=== PATIENT | male | born 1965 | race Caucasian/White ===

== ENCOUNTER 2016-08-13 11:02 | Emergency (ER) | payer BC ==
[~2016-08-13] VITALS: Ht 160 cm; Wt 131.5 kg
[~2016-08-13 11:02] MED LIST: ALBUTEROL0.09 MG/A2 IH; AMOXICILLIN500 MG PO; AMOXICILLIN875 MG PO; AUGMENTIN 500 M1 TAB PO; BACTRIM DS 8001 TA1 PO; CAPOTEN50 MG PO; CIPRO500 MG PO; CLARITIN10 MG PO; CLEOCIN HCL300 MG PO; DARVOCET N 1001 TAB PO; DOXYCYCLINE MO100 MG PO; KEFLEX500 MG PO; MEDROL DOSEPAK4 MG PO; NORVASC10 MG PO; PHENERGAN W/DM120 ML PO; PREDNICOT10 MG PO; PREDNICOT20 MG PO; PREDNISONE20 MG PO; PROAIR HFA0.09 MG/AC INH; ROBITUSSIN CF PO; ROBITUSSIN DM120 ML PO; SYNTHROID,LEV125 MCG PO; SYNTHROID0.125 MG PO; TESSALON PERLE100 M1 PO; Tessalon Perle100 MG PO; VIBRAMYCIN100 MG PO; VICODIN 5/500 505 MG PO; VICODIN ES 7501 TAB PO; ZITHROMAX Z PA250 MG PO; ZITHROMAX250 MG PO; ZOFRAN4 MG PO
[2016-08-13 11:07] VITALS: BP 153/82
[2016-08-13] MEDS ORDERED: CLARITIN10 MG PO (11:45)
[2016-08-13] MEDS ORDERED: ROBITUSSIN AC 110 ML PO (11:45)
[2016-08-13] MEDS ORDERED: FLONASE ALLERG9.9 ML NAS (11:45)
[2016-08-13] MEDS ORDERED: PREDNISONE10 MG PO (11:45)
[2016-10-14] MEDS ORDERED: PREDNISONE20 M1 PO (07:27)
[2016-10-14] MEDS ORDERED: ZITHROMAX250 MG PO (07:27)
[2016-10-14] MEDS ORDERED: VENTOLIN H0.09 MG/AC INH (07:28)
== END 2016-08-13 12:31 | disposition home or self-care (01) ==
LOC: ED 11:02
DX: B34.9 Viral infection, unspecified (principal); I10 Essential (primary) hypertension; K21.9 Gastro-esophageal reflux disease without esophagitis; E78.5 Hyperlipidemia, unspecified; E03.9 Hypothyroidism, unspecified; D64.9 Anemia, unspecified; J45.909 Unspecified asthma, uncomplicated; Z79.899 Other long term (current) drug therapy; Z88.6 Allergy status to analgesic agent

== ENCOUNTER → 2017-02-26 | Emergency (ER) | payer BC ==
[~2017-02-26] VITALS: Ht 157.4 cm; Wt 131.5 kg
[~2017-02-26] MED LIST changes: +FLONASE ALLERG9.9 ML NAS; +PREDNISONE10 MG PO; +PREDNISONE20 M1 PO; +ROBITUSSIN AC 110 ML PO; +ROBITUSSIN DM 105 ML PO; +VENTOLIN H0.09 MG/AC INH
[2017-02-26 11:00] VITALS: BP 146/80
== END ==
LOC: ED 10:53
DX: B34.9 Viral infection, unspecified (principal); R03.0 Elevated blood-pressure reading, without diagnosis of hypertension; Z88.6 Allergy status to analgesic agent

== ENCOUNTER 2017-03-30 01:00 | Emergency (ER) | payer BC ==
[~2017-03-30] VITALS: Ht 157.4 cm; Wt 134.3 kg
[~2017-03-30 01:00] MED LIST changes: -LEVOTHYROXINE137 MCG PO; -NORCO 5-325 TA1 EACH PO; -PEPCID20 MG PO; -REGLAN5 MG PO; -VITAMIN D31000 UNI1 PO
[2017-03-30] MEDS ORDERED: VITAMIN D31000 UNI1 PO (01:09)
[2017-03-30] MEDS ORDERED: LEVOTHYROXINE137 MCG PO (01:10)
[2017-03-30 01:33] LABS: BASO % 0.2 % (0.0-1.0); EOS # 0.3 10*3/uL (0.0-0.4); EOS % 2.9 % (1.0-4.0); HEMATOCRIT 42.2 % (42.0-52.0); HEMOGLOBIN 12.9 g/dl (14.0-18.0); LYMPH # 1.8 10*3/uL (1.3-4.4); LYMPH % 18.6 % (27.0-41.0); MEAN CELL VOLUME 84.4 fl (80.0-94.0); MEAN CORPUSCULAR HGB 25.8 pg (27.0-31.0); MEAN CORPUSCULAR HGB CONC 30.6 g/dl (33.0-37.0); MEAN PLATELET VOLUME 9.1 fl (9.6-12.3); MONO # 0.6 10*3/uL (0.1-1.0); PLATELET COUNT AUTOMATED 369 10*3/uL (130-400); RED CELL DISTRI WIDTH 14.1 % (0-14.5); WHITE BLOOD COUNT 9.7 10*3/uL (4.8-10.8)
[2017-03-30 01:50] LABS: ALBUMIN 3.4 gm/dl (3.1-4.5); ALKALINE PHOSPHATASE 113 U/L (45-117); BUN 14 mg/dl (7-24); CHLORIDE 102 mmol/L (98-107); CREATININE 1.13 mg/dL (0.70-1.30); LIPASE 145 U/L (73-393); MAGNESIUM 2.2 mg/dL (1.5-2.1); POTASSIUM 3.7 mmol/L (3.5-5.1); SGOT/AST 26 IU/L (3-35); SGPT/ALT 45 U/L (12-78); SODIUM 137 mmol/L (136-145); TOTAL PROTEIN 7.9 gm/dL (6.4-8.2)
[2017-03-30 01:51] LABS: TROPONIN I < 0.015 ng/ml (<0.045)
[2017-03-30 02:16] VITALS: BP 156/84
[2017-03-30 04:09] LABS: BILIRUBIN NEGATIVE (NEGATIVE); BLOOD TRACE-INTACT (NEGATIVE); CLARITY CLEAR (CLEAR); COLOR YELLOW (YELLOW); GLUCOSE NEGATIVE (NEGATIVE); KETONE NEGATIVE (NEGATIVE); LEUKO ESTERASE NEGATIVE (NEGATIVE); NITRITE NEGATIVE (NEGATIVE); SPECIFIC GRAVITY 1.025 (1.005-1.030); UROBILINOGEN 0.2 E.U./dl (0.2-1.0)
[2017-03-30 04:19] LABS: WBC 0-2 wbc/hpf (0-5)
[2017-03-30] MEDS ORDERED: REGLAN5 MG PO (04:44)
[2017-03-30] MEDS ORDERED: NORCO 5-325 TA1 EACH PO (04:44)
[2017-03-30] MEDS ORDERED: PEPCID20 MG PO (04:44)
== END 2017-03-30 05:10 | disposition home or self-care (01) ==
LOC: ED 01:00
PROVIDERS: Emergency Medicine Emergency Medical Services
DX: K80.50 Calculus of bile duct without cholangitis or cholecystitis without obstruction (principal); K29.70 Gastritis, unspecified, without bleeding; J45.909 Unspecified asthma, uncomplicated; E78.5 Hyperlipidemia, unspecified; I10 Essential (primary) hypertension; K21.9 Gastro-esophageal reflux disease without esophagitis; E03.9 Hypothyroidism, unspecified; Z79.899 Other long term (current) drug therapy; Z98.890 Other specified postprocedural states; Z88.6 Allergy status to analgesic agent; Z88.5 Allergy status to narcotic agent

== ENCOUNTER → 2017-03-30 | Outpatient (CLI) | payer BC ==
[~2017-03-30] MED LIST changes: -CAPOTEN50 MG PO; +CAPTOPRIL25 MG PO; +LEVOTHYROXINE137 MCG PO; +NORCO 5-325 TA1 EACH PO; +PEPCID20 MG PO; +REGLAN5 MG PO; +VITAMIN D31000 UNI1 PO
== END | disposition home or self-care (01) ==
LOC: US 09:57
DX: K80.20 Calculus of gallbladder without cholecystitis without obstruction (principal)

== ENCOUNTER 2017-04-04 18:47 | Emergency (ER) | payer BC ==
[~2017-04-04] VITALS: Ht 157.4 cm; Wt 135.2 kg
[~2017-04-04 18:47] MED LIST changes: +LEVOTHYROXINE137 MCG PO; +NORCO 5-325 TA1 EACH PO; +PEPCID20 MG PO; +REGLAN5 MG PO; +VITAMIN D31000 UNI1 PO
[2017-04-04 19:55] LABS: BASO % 0.1 % (0.0-1.0); EOS % 0.3 % (1.0-4.0); HEMATOCRIT 40.2 % (42.0-52.0); HEMOGLOBIN 12.4 g/dl (14.0-18.0); LYMPH # 0.9 10*3/uL (1.3-4.4); LYMPH % 6.4 % (27.0-41.0); MEAN CELL VOLUME 82.7 fl (80.0-94.0); MEAN CORPUSCULAR HGB 25.5 pg (27.0-31.0); MEAN CORPUSCULAR HGB CONC 30.8 g/dl (33.0-37.0); MONO # 0.4 10*3/uL (0.1-1.0); MONO % 2.8 % (3.0-9.0); NEUT # 13.1 10*3/uL (2.3-7.9); NEUT % 89.9 % (47.0-73.0); PLATELET COUNT AUTOMATED 366 10*3/uL (130-400); RED BLOOD COUNT 4.86 10*6/uL (4.50-5.90); RED CELL DISTRI WIDTH 13.8 % (0-14.5); WHITE BLOOD COUNT 14.6 10*3/uL (4.8-10.8)
[2017-04-04 20:10] LABS: ALBUMIN 3.3 gm/dl (3.1-4.5); ALKALINE PHOSPHATASE 129 U/L (45-117); BUN 8 mg/dl (7-24); CHLORIDE 100 mmol/L (98-107); CREATININE 0.86 mg/dL (0.70-1.30); LIPASE 81 U/L (73-393); POTASSIUM 3.8 mmol/L (3.5-5.1); SGOT/AST 29 IU/L (3-35); SGPT/ALT 40 U/L (12-78); SODIUM 138 mmol/L (136-145); TOTAL PROTEIN 7.9 gm/dL (6.4-8.2)
[2017-04-04 20:49] VITALS: BP 198/96
[2017-04-04 21:07] LABS: BILIRUBIN NEGATIVE (NEGATIVE); BLOOD TRACE-INTACT (NEGATIVE); CLARITY CLEAR (CLEAR); COLOR YELLOW (YELLOW); GLUCOSE NEGATIVE (NEGATIVE); KETONE NEGATIVE (NEGATIVE); LEUKO ESTERASE NEGATIVE (NEGATIVE); NITRITE NEGATIVE (NEGATIVE); PH 7.5 (5.0-9.0); SPECIFIC GRAVITY 1.015 (1.005-1.030); UROBILINOGEN 0.2 E.U./dl (0.2-1.0)
[2017-04-04 21:13] LABS: BACTERIA TRACE; WBC 0-2 wbc/hpf (0-5)
== END 2017-04-04 21:25 | disposition home or self-care (01) ==
LOC: ED 18:47
PROVIDERS: Nurse Practitioner Family
DX: R10.11 Right upper quadrant pain (principal); R11.2 Nausea with vomiting, unspecified; I10 Essential (primary) hypertension; J45.909 Unspecified asthma, uncomplicated; K21.9 Gastro-esophageal reflux disease without esophagitis; E78.5 Hyperlipidemia, unspecified; E03.9 Hypothyroidism, unspecified; Z88.6 Allergy status to analgesic agent; Z79.899 Other long term (current) drug therapy

== ENCOUNTER → 2017-04-18 | Day surgery (SDC) | payer BC ==
[~2017-04-18] VITALS: Ht 157.4 cm; Wt 131.5 kg
--- NOTE | ~2017-04-18 | PROC NOTE ---
[place], [place] PROCEDURE NOTE NAME: NANCY TREVINO UNIT #: [id number] ROOM: DOCTOR: CHITO MAI MD BIRTHDATE: [birth year] DOS: 04/18/2017 PREOPERATIVE DIAGNOSES: Lower gastrointestinal bleeding, constipation. POSTOPERATIVE DIAGNOSIS: Colon polyps x 2 (45 cm, 90 cm from the anal verge). PROCEDURE: Colonoscopy with polypectomy. SURGEON: Chito Mai MD SUPERINTENDENT NONSELLING: None. ANESTHESIA: MAC. INDICATIONS: This is a 52-year-old gentleman who is here for a colonoscopy for his symptoms of constipation and lower GI bleeding. The patient has never had a colonoscopy before. The procedure and its complications were explained to the patient in detail preoperatively. Complications that were discussed included but were not limited to bleeding, infection, colon perforation, missed lesions, and prolonged pain. He agreed to proceed. DESCRIPTION OF PROCEDURE: After identifying the patient, the patient was brought to the endoscopy suite and placed in the left lateral position. After IV sedation was administered, a timeout procedure was called. A digital rectal exam was performed, which was within normal limits. An adult colonoscope was now introduced into the anal canal and advanced sequentially into the rectum, sigmoid colon, descending colon, transverse colon and ascending colon up to the cecum. The prep was found to be optimal. Upon reaching the cecum, the scope was withdrawn. At approximately 90 cm from the anal verge, a polyp was visualized, which was biopsied with the help of biopsy forceps. After hemostasis was confirmed, the scope was withdrawn further where another larger polyp was found at 45 cm. This was removed in 2 pieces with the help of a snare polypectomy and sent for histopathological diagnosis. This region was also tattooed with Breonna Ink and after hemostasis was confirmed, the scope was then withdrawn and the patient was then taken to the recovery room in a stable fashion. There were no complications. Dr. Chito Mai, the attending surgeon, was present throughout the operating case. Based on these findings, the patient is recommended to have another colonoscopy in 3 years or sooner depending on the pathology and depending on this patient's symptoms. This will be discussed with the patient in the postoperative recovery room. [place], [place] PROCEDURE NOTE NAME: NANCY TREVINO UNIT #: [id number] ROOM: DOCTOR: CHITO MAI MD BIRTHDATE: [birth year] Chito Mai MD CM:PROCNOTE:PROCEDURE NOTE 1145 1210 CHITO MAI MD
[2017-04-18 10:00] VITALS: BP 129/72
[2017-04-18 11:30] VITALS: BP 149/94
[2017-04-18 11:45] VITALS: BP 159/90
[2017-04-18 12:00] VITALS: BP 136/88
== END | disposition home or self-care (01) ==
LOC: SDC 04-14 14:00
DX: D12.5 Benign neoplasm of sigmoid colon (principal); D12.3 Benign neoplasm of transverse colon; E03.9 Hypothyroidism, unspecified; I10 Essential (primary) hypertension; E78.00 Pure hypercholesterolemia, unspecified; M10.9 Gout, unspecified; J45.909 Unspecified asthma, uncomplicated; Z79.899 Other long term (current) drug therapy; Z98.890 Other specified postprocedural states; Z88.8 Allergy status to other drugs, medicaments and biological substances

== ENCOUNTER 2017-04-29 14:34 | Emergency (ER) | payer BC ==
[~2017-04-29] VITALS: Ht 157.4 cm; Wt 131.5 kg
[2017-04-29 14:40] VITALS: BP 190/85
[2017-04-29] MEDS ORDERED: AMINOPHYLLIN200 MG PO (16:52)
== END 2017-04-29 22:05 | disposition home or self-care (01) ==
LOC: ED 14:34
DX: J01.10 Acute frontal sinusitis, unspecified (principal); I10 Essential (primary) hypertension; J45.909 Unspecified asthma, uncomplicated; K21.9 Gastro-esophageal reflux disease without esophagitis; E78.5 Hyperlipidemia, unspecified; E03.9 Hypothyroidism, unspecified; Z88.6 Allergy status to analgesic agent; Z79.899 Other long term (current) drug therapy

== ENCOUNTER 2017-09-13 12:27 | Emergency (ER) | payer BC ==
[~2017-09-13] VITALS: Ht 157.4 cm; Wt 133.8 kg
[~2017-09-13 12:27] MED LIST changes: +AMINOPHYLLIN200 MG PO
[2017-09-13 13:02] VITALS: BP 152/83
[2017-09-13 14:22] LABS: BILIRUBIN NEGATIVE (NEGATIVE); BLOOD NEGATIVE (NEGATIVE); CLARITY CLEAR (CLEAR); COLOR YELLOW (YELLOW); GLUCOSE NEGATIVE (NEGATIVE); KETONE NEGATIVE (NEGATIVE); LEUKO ESTERASE NEGATIVE (NEGATIVE); NITRITE NEGATIVE (NEGATIVE); SPECIFIC GRAVITY <= 1.005 (1.005-1.030); UROBILINOGEN 0.2 E.U./dl (0.2-1.0)
[2017-09-13 14:45] LABS: EPITHELIAL CELLS 0-2; WBC 0-2 wbc/hpf (0-5)
== END 2017-09-13 15:15 | disposition home or self-care (01) ==
LOC: ED 12:27
PROVIDERS: Nurse Practitioner Family
DX: Z11.3 Encounter for screening for infections with a predominantly sexual mode of transmission (principal); Z98.890 Other specified postprocedural states; Z79.899 Other long term (current) drug therapy; Z88.6 Allergy status to analgesic agent; Z88.5 Allergy status to narcotic agent

== ENCOUNTER → 2017-11-15 | Outpatient (CLI) | payer BC | END | disposition home or self-care (01) | LOC: US 08:00 | DX: L03.116 Cellulitis of left lower limb (principal); R60.0 Localized edema ==

== ENCOUNTER 2017-12-27 15:21 | Inpatient (IN) | payer BC ==
[~2017-12-27] VITALS: Ht 154.9 cm; Wt 134.9 kg
--- NOTE | ~2017-12-27 | CON ---
[place], [place] REPORT OF CONSULTATION NAME: NANCY TREVINO UNIT #: [id number] ROOM: 424 DOCTOR: JENNIFER FIGUEREDOHAFSA BIRTHDATE: [birth year] DOS: 12/30/2017 HISTORY OF PRESENT ILLNESS: This is a 52-year-old who has presented with initial complaint of right upper quadrant pain, nausea and vomiting about 3 days prior to admission and the patient seen by Dr. Ortiz and radiologic diagnosis of cholecystitis initially for laparoscopic cholecystectomy and subsequently converted to open cholecystectomy with drain placement and concerns were possibility of perforated gallbladder. Subsequently, perforation of the gallbladder and cholecystitis and abscess formation and gangrenous gallbladder were all noticed, subtotal cholecystectomy and drainage was undertaken and I was called by Dr. Ortiz regarding need of stent in common duct hopefully to above cystic duct to prevent further drainage. At the time of admission, his white blood cell was 17, H and H of 11 and 38 with a neutrophil elevation. Comprehensive metabolic panel at the beginning LFTs were normal. Lipase normal. Gallbladder sonogram as part of investigation, cholelithiasis with gallbladder wall thickening and diffuse hepatic steatosis all has been noticed. Troponin level has been fairly obtained and has been negative. Lactic acid was negative. His urine culture and blood cultures remained normal. Labs and records reviewed. PAST MEDICAL HISTORY: Morbid obesity, hypothyroidism, gastroesophageal reflux, asthma, gangrenous gallbladder, status post partial cholecystectomy. PAST SURGICAL HISTORY: Umbilical hernia, history of previous ERCPs, hernia repair. SOCIAL HISTORY: Nonsmoker, nonalcohol consumer. FAMILY HISTORY: Noncontributory. ALLERGIES: CODEINE, ASPIRIN, AND IBUPROFEN. HOME MEDICATIONS: Include Captopril, albuterol, levothyroxine supplementation and vitamin D. REVIEW OF SYSTEMS: HEENT: Denies double vision, blurred vision. RESPIRATORY: Denies shortness of breath. CARDIOVASCULAR: Denies acute chest pain. DIGESTIVE SYSTEM: Post-cholecystectomy yesterday. An abdominal tenderness. PHYSICAL EXAMINATION: GENERAL: Reveals morbidly obese patient. HEENT: Head is normocephalic, nontraumatic. Mouth and buccal mucosa benign. NECK: Supple, no thyromegaly, no cervical lymphadenopathy. CHEST: Symmetric anatomy, equal expansion. No wheeze. No rhonchus. ABDOMEN: Status post drainage in right upper quadrant is noticed. Bowel sounds present. Some erythema of the apron of the abdomen and edema was noticed. EXTREMITIES: No cyanosis, no pedal edema. NEUROLOGIC: Alert and oriented. [place], [place] REPORT OF CONSULTATION NAME: NANCY TREVINO UNIT #: [id number] ROOM: [facility] DOCTOR: HAFSA RODRIGUEZ MD BIRTHDATE: [birth year] Labs reviewed, records reviewed, data reassessed. IMPRESSION: Status post subtotal cholecystectomy. HIDA scan report, sonographic report, labs and records have been reviewed. Gangrenous gallbladder postoperative diagnosis with suspected continuation of drainage. We are going to see if we can negotiate the stent above cystic duct to prevent further leakage through the cystic anatomy since the cystic duct has not been removed. Labs and reports reassessed. We are going to proceed with the ERCP and possible stent placement. HAFSA RODRIGUEZ MD CM:CONSTR:REPORT OF CONSULTATION 1319 01/31/18 0742 interface
--- NOTE | ~2017-12-27 | O ---
[place], [place] OPERATIVE NOTE NAME: NANCY TREVINO UNIT #: [id number] ROOM: 424 DOCTOR: JENNIFER [facility]EDO,[facility] BIRTHDATE: [birth year] DOS: 12/30/2017 GASTROSCOPIC PROCEDURE REPORT The patient has presented with nausea, abdominal pain, leukocytosis and has had previous surgical approach yesterday with subtotal cholecystectomy, laparoscopically converted to open abdomen and the gallbladder apparently was gangrened and difficult to be totally extracted. There was suspected stress regarding possible leaking. PROCEDURE: Today's procedure part of investigation is ERCP plus removal of common duct, obstructed stent plus papillotomy plus balloon sweep of multiple stones from common duct and sludge plus common bile duct stent replacement. PREMEDICATION: Propofol intubation. SCOPE: Olympus viewing duodenum scope. REPORT: After putting the patient in left lateral position and application of lubricant to the scope, the scope was entered. Thereafter, under direct visualization, I advanced through the length of esophagus without difficulty into gastric pouch into the duodenum. So far, multiple small ulcerations in the stomach was identified. As we approached the ampulla of Vater, there is a retained stent, which is completely occluded and this was snared and orally extracted. The patient was rescoped again. Papilla of Vater was cannulated. Hepatic radicles injected. There are multiple floating debris in the common duct. Therefore, a papillotomy at 1 o'clock position was performed and a balloon size 15 was utilized and multi sweep of common duct was performed. Multi large and small stones were extracted, photographed. Large volume of debris was extracted, photographed, and at this stage, a stent size 10 x 7 was over the guidewire negotiated into the common bile duct and deployed successfully immediate emptying of the duct from dye was documented. The patient extubated, tolerated procedure well. IMPRESSION: Endoscopic retrograde cholangiopancreatography, status post removal of obstructed common bile duct stent, status post papillotomy, status post common bile duct balloon multiple stone extractions, status post common bile duct stenting size 10 x 7, no gross leakage at the subtotal cholecystectomy site was noticed. PLAN AND DISCUSSION: We will proceed with a postop management and at this stage, we have a patent hepatic radicles, common hepatic duct and common bile duct with this new stent. [place], [place] OPERATIVE NOTE NAME: NANCY TREVINO UNIT #: [id number] ROOM: 424 DOCTOR: JENNIFER FIGUEREDO,HAFSA BIRTHDATE: [birth year] HAFSA RODRIGUEZ MD CM:OPRECORD:OPERATIVE NOTE [id number] 1526 HAFSA RODRIGUEZ MD 01/03/18 0955 interface
[2017-12-27 15:25] VITALS: BP 134/76
[2017-12-27 15:51] LABS: BASO % 0.1 % (0.0-1.0); EOS # 0.1 10*3/uL (0.0-0.4); EOS % 0.3 % (1.0-4.0); HEMATOCRIT 38.3 % (42.0-52.0); HEMOGLOBIN 11.6 g/dl (14.0-18.0); LYMPH % 5.7 % (27.0-41.0); MEAN CELL VOLUME 84.2 fl (80.0-94.0); MEAN CORPUSCULAR HGB 25.5 pg (27.0-31.0); MEAN CORPUSCULAR HGB CONC 30.3 g/dl (33.0-37.0); MEAN PLATELET VOLUME 9.4 fl (9.6-12.3); MONO # 1.2 10*3/uL (0.1-1.0); MONO % 6.9 % (3.0-9.0); NEUT # 15.1 10*3/uL (2.3-7.9); NEUT % 86.6 % (47.0-73.0); PLATELET COUNT AUTOMATED 360 10*3/uL (130-400); RED BLOOD COUNT 4.55 10*6/uL (4.50-5.90); RED CELL DISTRI WIDTH 14.2 % (0-14.5); WHITE BLOOD COUNT 17.4 10*3/uL (4.8-10.8)
[2017-12-27 16:00] VITALS: BP 120/67
[2017-12-27 16:07] LABS: ALKALINE PHOSPHATASE 117 U/L (45-117); BUN 13 mg/dl (7-24); CHLORIDE 97 mmol/L (98-107); CREATININE 1.02 mg/dL (0.70-1.30); LIPASE 104 U/L (73-393); POTASSIUM 3.5 mmol/L (3.5-5.1); SGOT/AST 26 IU/L (3-35); SGPT/ALT 28 U/L (12-78); SODIUM 137 mmol/L (136-145); TOTAL PROTEIN 8.1 gm/dL (6.4-8.2)
[2017-12-27 16:11] LABS: BILIRUBIN 1+ (NEGATIVE); BLOOD TRACE-LYSED (NEGATIVE); CLARITY SL CLOUDY (CLEAR); COLOR YELLOW (YELLOW); GLUCOSE NEGATIVE (NEGATIVE); KETONE NEGATIVE (NEGATIVE); LEUKO ESTERASE NEGATIVE (NEGATIVE); NITRITE NEGATIVE (NEGATIVE); PH 5.5 (5.0-9.0); SPECIFIC GRAVITY >= 1.030 (1.005-1.030)
[2017-12-27 16:23] LABS: BACTERIA 2+; EPITHELIAL CELLS 0-2
[2017-12-27 17:10] VITALS: BP 120/67
[2017-12-27 19:03] VITALS: BP 99/68
[2017-12-27 19:54] VITALS: BP 134/82
[2017-12-27 19:55] VITALS: BP 134/82
[2017-12-28] VITALS: BP 100/61
[2017-12-28 06:48] LABS: BASO % 0.1 % (0.0-1.0); EOS # 0.1 10*3/uL (0.0-0.4); EOS % 0.6 % (1.0-4.0); HEMATOCRIT 36.9 % (42.0-52.0); HEMOGLOBIN 10.8 g/dl (14.0-18.0); LYMPH # 0.9 10*3/uL (1.3-4.4); LYMPH % 6.2 % (27.0-41.0); MEAN CELL VOLUME 85.8 fl (80.0-94.0); MEAN CORPUSCULAR HGB 25.1 pg (27.0-31.0); MEAN CORPUSCULAR HGB CONC 29.3 g/dl (33.0-37.0); MEAN PLATELET VOLUME 9.3 fl (9.6-12.3); MONO # 1.1 10*3/uL (0.1-1.0); MONO % 7.7 % (3.0-9.0); NEUT # 12.5 10*3/uL (2.3-7.9); NEUT % 84.9 % (47.0-73.0); PLATELET COUNT AUTOMATED 357 10*3/uL (130-400); RED CELL DISTRI WIDTH 14.2 % (0-14.5); WHITE BLOOD COUNT 14.8 10*3/uL (4.8-10.8)
[2017-12-28 07:06] LABS: ALBUMIN 2.7 gm/dl (3.1-4.5); ALKALINE PHOSPHATASE 115 U/L (45-117); BUN 16 mg/dl (7-24); CHLORIDE 100 mmol/L (98-107); CREATININE 1.01 mg/dL (0.70-1.30); PHOSPHOROUS 2.9 mg/dL (2.5-4.9); POTASSIUM 3.8 mmol/L (3.5-5.1); SGOT/AST 25 IU/L (3-35); SGPT/ALT 27 U/L (12-78); SODIUM 140 mmol/L (136-145); TOTAL PROTEIN 7.7 gm/dL (6.4-8.2)
[2017-12-28 07:30] LABS: ACT PARTIAL THROMBO TIME 28.9 SECONDS (20.8-31.5)
[2017-12-28 08:00] VITALS: BP 94/50
[2017-12-28 12:00] VITALS: BP 137/78
[2017-12-28 16:00] VITALS: BP 94/64
[2017-12-28 17:46] VITALS: BP 108/62
[2017-12-28 20:00] VITALS: BP 104/64
[2017-12-29] VITALS (12 sets, daily range): BP systolic 97–153; BP diastolic 43–82
[2017-12-29 07:08] LABS: BASO % 0.1 % (0.0-1.0); EOS # 0.1 10*3/uL (0.0-0.4); EOS % 0.9 % (1.0-4.0); HEMATOCRIT 34.8 % (42.0-52.0); HEMOGLOBIN 9.7 g/dl (14.0-18.0); LYMPH # 1.2 10*3/uL (1.3-4.4); LYMPH % 12.6 % (27.0-41.0); MEAN CELL VOLUME 88.3 fl (80.0-94.0); MEAN CORPUSCULAR HGB 24.6 pg (27.0-31.0); MEAN CORPUSCULAR HGB CONC 27.9 g/dl (33.0-37.0); MEAN PLATELET VOLUME 9.6 fl (9.6-12.3); MONO # 0.7 10*3/uL (0.1-1.0); MONO % 6.8 % (3.0-9.0); NEUT # 7.5 10*3/uL (2.3-7.9); NEUT % 79.3 % (47.0-73.0); PLATELET COUNT AUTOMATED 356 10*3/uL (130-400); RED BLOOD COUNT 3.94 10*6/uL (4.50-5.90); RED CELL DISTRI WIDTH 14.1 % (0-14.5); WHITE BLOOD COUNT 9.5 10*3/uL (4.8-10.8)
[2017-12-29 07:10] LABS: BUN 18 mg/dl (7-24); CHLORIDE 106 mmol/L (98-107); CREATININE 0.78 mg/dL (0.70-1.30); POTASSIUM 3.9 mmol/L (3.5-5.1); SODIUM 144 mmol/L (136-145)
[2017-12-30] VITALS (12 sets, daily range): BP systolic 90–162; BP diastolic 51–85
[2017-12-30 05:24] LABS: BASO % 0.1 % (0.0-1.0); HEMATOCRIT 34.8 % (42.0-52.0); LYMPH # 0.8 10*3/uL (1.3-4.4); MEAN CORPUSCULAR HGB CONC 28.7 g/dl (33.0-37.0); MEAN PLATELET VOLUME 9.2 fl (9.6-12.3); MONO # 0.8 10*3/uL (0.1-1.0); NEUT # 9.5 10*3/uL (2.3-7.9); NEUT % 85.4 % (47.0-73.0); PLATELET COUNT AUTOMATED 343 10*3/uL (130-400); RED CELL DISTRI WIDTH 13.8 % (0-14.5); WHITE BLOOD COUNT 11.1 10*3/uL (4.8-10.8)
[2017-12-30 05:34] LABS: INTERNATIONAL NORM RATIO 1.1 (2.0-3.5)
[2017-12-30 05:39] LABS: ALBUMIN 2.3 gm/dl (3.1-4.5); ALKALINE PHOSPHATASE 101 U/L (45-117); BUN 13 mg/dl (7-24); CHLORIDE 109 mmol/L (98-107); CREATININE 0.65 mg/dL (0.70-1.30); POTASSIUM 3.9 mmol/L (3.5-5.1); SGOT/AST 37 IU/L (3-35); SGPT/ALT 31 U/L (12-78); SODIUM 143 mmol/L (136-145); TOTAL PROTEIN 6.8 gm/dL (6.4-8.2); VANCOMYCIN TROUGH 13.8 ug/mL (10-20)
[2017-12-31] VITALS: BP 152/82
[2017-12-31 04:00] VITALS: BP 161/92
[2017-12-31 08:00] VITALS: BP 143/86
[2017-12-31 12:00] VITALS: BP 128/78; BP 130/64
[2017-12-31 16:00] VITALS: BP 139/69
[2017-12-31 20:00] VITALS: BP 106/56
[2018-01-01] VITALS: BP 164/92
[2018-01-01 04:00] VITALS: BP 137/86
[2018-01-01 06:10] LABS: BASO % 0.2 % (0.0-1.0); EOS # 0.1 10*3/uL (0.0-0.4); EOS % 0.7 % (1.0-4.0); HEMATOCRIT 38.6 % (42.0-52.0); LYMPH # 1.2 10*3/uL (1.3-4.4); MEAN CELL VOLUME 86.9 fl (80.0-94.0); MEAN CORPUSCULAR HGB 24.8 pg (27.0-31.0); MEAN CORPUSCULAR HGB CONC 28.5 g/dl (33.0-37.0); MEAN PLATELET VOLUME 9.7 fl (9.6-12.3); MONO # 0.6 10*3/uL (0.1-1.0); MONO % 6.8 % (3.0-9.0); NEUT # 6.9 10*3/uL (2.3-7.9); NEUT % 78.7 % (47.0-73.0); PLATELET COUNT AUTOMATED 402 10*3/uL (130-400); RED BLOOD COUNT 4.44 10*6/uL (4.50-5.90); WHITE BLOOD COUNT 8.8 10*3/uL (4.8-10.8)
[2018-01-01 06:26] LABS: ALBUMIN 2.1 gm/dl (3.1-4.5); BUN 6 mg/dl (7-24); CHLORIDE 107 mmol/L (98-107); POTASSIUM 3.4 mmol/L (3.5-5.1); SODIUM 141 mmol/L (136-145)
[2018-01-01 06:31] LABS: ALKALINE PHOSPHATASE 87 U/L (45-117); CREATININE 0.49 mg/dL (0.70-1.30); SGOT/AST 28 IU/L (3-35); SGPT/ALT 28 U/L (12-78); TOTAL PROTEIN 6.5 gm/dL (6.4-8.2)
[2018-01-01 08:00] VITALS: BP 148/76
[2018-01-01 12:00] VITALS: BP 152/87
[2018-01-01 16:00] VITALS: BP 141/76
[2018-01-01 20:00] VITALS: BP 136/64
[2018-01-02] VITALS: BP 145/68
[2018-01-02 06:01] LABS: ALBUMIN 2.1 gm/dl (3.1-4.5); ALKALINE PHOSPHATASE 84 U/L (45-117); BUN 6 mg/dl (7-24); CHLORIDE 101 mmol/L (98-107); CREATININE 0.53 mg/dL (0.70-1.30); PHOSPHOROUS 1.6 mg/dL (2.5-4.9); POTASSIUM 3.2 mmol/L (3.5-5.1); SGOT/AST 29 IU/L (3-35); SGPT/ALT 31 U/L (12-78); SODIUM 139 mmol/L (136-145); TOTAL PROTEIN 6.3 gm/dL (6.4-8.2); VANCOMYCIN TROUGH 10.8 ug/mL (10-20)
[2018-01-02 06:02] LABS: BASO % 0.1 % (0.0-1.0); EOS # 0.3 10*3/uL (0.0-0.4); EOS % 3.4 % (1.0-4.0); HEMATOCRIT 35.6 % (42.0-52.0); HEMOGLOBIN 10.3 g/dl (14.0-18.0); LYMPH # 1.3 10*3/uL (1.3-4.4); LYMPH % 17.3 % (27.0-41.0); MEAN CORPUSCULAR HGB 24.6 pg (27.0-31.0); MEAN CORPUSCULAR HGB CONC 28.9 g/dl (33.0-37.0); MEAN PLATELET VOLUME 9.4 fl (9.6-12.3); MONO # 0.4 10*3/uL (0.1-1.0); MONO % 5.4 % (3.0-9.0); NEUT # 5.5 10*3/uL (2.3-7.9); NEUT % 73.5 % (47.0-73.0); PLATELET COUNT AUTOMATED 398 10*3/uL (130-400); RED BLOOD COUNT 4.19 10*6/uL (4.50-5.90); WHITE BLOOD COUNT 7.5 10*3/uL (4.8-10.8)
[2018-01-02 08:00] VITALS: BP 155/78
[2018-01-02 12:00] VITALS: BP 129/69
[2018-01-02 16:00] VITALS: BP 139/69
[2018-01-02 20:00] VITALS: BP 139/80
[2018-01-03] VITALS: BP 149/60
[2018-01-03 07:30] LABS: BUN 5 mg/dl (7-24); CHLORIDE 101 mmol/L (98-107); CREATININE 0.53 mg/dL (0.70-1.30); SODIUM 138 mmol/L (136-145)
[2018-01-03 07:32] LABS: PHOSPHOROUS 3.9 mg/dL (2.5-4.9)
[2018-01-03 08:00] VITALS: BP 144/73
[2018-01-03 12:00] VITALS: BP 144/64
[2018-01-03 16:00] VITALS: BP 151/63
[2018-01-03 20:00] VITALS: BP 145/74
[2018-01-04 00:26] VITALS: BP 176/85
[2018-01-04 08:00] VITALS: BP 142/71
[2018-01-04] MEDS ORDERED: LISINOPRIL5 MG PO (10:34)
[2018-01-04] MEDS ORDERED: AUGMENTIN 875-875 MG PO (10:36)
== END 2018-01-04 13:00 | disposition home health service (06) | DRG 907 ==
LOC: ED 15:21 → 5E 18:44 → EDHOLD 18:44 → 5E 19:30 → ICCU 12-29 16:54 → 4E 01-01 14:34
PROVIDERS: Family Medicine; Internal Medicine; Internal Medicine Hospice and Palliative Medicine; Nurse Practitioner Family; Student in an Organized Health Care Education/Training Program
PROC: 0FJ44ZZ Inspection of Gallbladder, Percutaneous Endoscopic Approach (ICD-10-PCS; principal; 2017-12-29)
PROC: 0FT40ZZ Resection of Gallbladder, Open Approach (ICD-10-PCS; principal; 2017-12-29)
PROC: 5A09357 Assistance with Respiratory Ventilation, Less than 24 Consecutive Hours, Continuous Positive Airway Pressure (ICD-10-PCS; principal; 2017-12-29)
PROC: BF141ZZ Fluoroscopy of Gallbladder, Bile Ducts and Pancreatic Ducts using Low Osmolar Contrast (ICD-10-PCS; principal; 2017-12-29)
PROC: 0FPB8DZ Removal of Intraluminal Device from Hepatobiliary Duct, Via Natural or Artificial Opening Endoscopic (ICD-10-PCS; 2017-12-30)
PROC: 0F798DZ Dilation of Common Bile Duct with Intraluminal Device, Via Natural or Artificial Opening Endoscopic (ICD-10-PCS; 2017-12-30)
PROC: BF101ZZ Fluoroscopy of Bile Ducts using Low Osmolar Contrast (ICD-10-PCS; 2017-12-30)
PROC: 0FC98ZZ Extirpation of Matter from Common Bile Duct, Via Natural or Artificial Opening Endoscopic (ICD-10-PCS; 2017-12-30)
PROC: 5A09357 Assistance with Respiratory Ventilation, Less than 24 Consecutive Hours, Continuous Positive Airway Pressure (ICD-10-PCS; 2017-12-31)
DX: T85.868A Thrombosis due to other internal prosthetic devices, implants and grafts, initial encounter (principal); A41.9 Sepsis, unspecified organism; E43 Unspecified severe protein-calorie malnutrition; K82.2 Perforation of gallbladder; E87.3 Alkalosis; K80.62 Calculus of gallbladder and bile duct with acute cholecystitis without obstruction; E87.8 Other disorders of electrolyte and fluid balance, not elsewhere classified; Z68.43 Body mass index [BMI] 50.0-59.9, adult; D72.810 Lymphocytopenia; R73.9 Hyperglycemia, unspecified; K76.0 Fatty (change of) liver, not elsewhere classified; E66.01 Morbid (severe) obesity due to excess calories; K25.9 Gastric ulcer, unspecified as acute or chronic, without hemorrhage or perforation; I10 Essential (primary) hypertension; D64.9 Anemia, unspecified; J45.909 Unspecified asthma, uncomplicated; K21.9 Gastro-esophageal reflux disease without esophagitis; E03.9 Hypothyroidism, unspecified; E83.41 Hypermagnesemia; Y83.8 Other surgical procedures as the cause of abnormal reaction of the patient, or of later complication, without mention of misadventure at the time of the procedure; Y92.89 Other specified places as the place of occurrence of the external cause; Z88.6 Allergy status to analgesic agent; Z81.1 Family history of alcohol abuse and dependence; Z88.5 Allergy status to narcotic agent; Z83.3 Family history of diabetes mellitus; Z79.899 Other long term (current) drug therapy

== ENCOUNTER 2018-01-14 19:42 | Emergency (ER) | payer BC ==
[~2018-01-14] VITALS: Ht 154.9 cm; Wt 136.1 kg
[~2018-01-14 19:42] MED LIST changes: +AUGMENTIN 875-875 MG PO; +LISINOPRIL5 MG PO
[2018-01-14 19:43] VITALS: BP 139/79
[2018-01-14] MEDS ORDERED: CEPHALEXIN500 M1 PO (20:22)
== END 2018-01-14 20:29 | disposition home or self-care (01) ==
LOC: ED 19:42
DX: Z48.01 Encounter for change or removal of surgical wound dressing (principal); Z98.890 Other specified postprocedural states; Z79.899 Other long term (current) drug therapy; Z88.6 Allergy status to analgesic agent; Z88.5 Allergy status to narcotic agent

== ENCOUNTER → 2018-04-14 | Day surgery (SDC) | payer BC ==
[2018-04-14] VITALS (8 sets, daily range): BP systolic 101–142; BP diastolic 60–75
[~2018-04-14] VITALS: Ht 162.5 cm; Wt 136.1 kg
[~2018-04-14] MED LIST changes: +CEPHALEXIN500 M1 PO
--- NOTE | ~2018-04-14 | O ---
[place], [place] OPERATIVE NOTE NAME: NANCY TREVINO UNIT #: [id number] ROOM: DOCTOR: HAFSA RODRIGUEZ MD BIRTHDATE: [birth year] DOS: 04/14/2018 ADDENDUM SOCIAL HISTORY: Nonsmoker, nonalcohol consumer. PROCEDURE: Today's procedure part of investigation is ERCP plus balloon sweep of common duct. PREMEDICATION: By Anesthesia intubation. SCOPE: Olympus side-viewing duodenum scope. REPORT: After putting the patient in left lateral position and application of lubricant to the scope, the scope was introduced; thereafter, under direct visualization, I advanced through the length of esophagus into gastric pouch into duodenal bulb. Ampulla of Vater was defined. Selective cannulization of common duct was undertaken. Guidewire was advanced to right hepatic radicle and hepatic radicles were opacified. At this stage, we find that there is no retention of the stent. The stent that we were looking for has fallen and there was no migration of the stent into the hepatic radicle. A cannulatome removed and a balloon size 12-15 was introduced into the ampulla and advanced to bifurcation of right and left hepatic radicle. Inflated with a pressure 12 and gradually withdrawn as we infused dye inside the common duct. With the inflated status, balloon was removed. The duct entirely opacified. The remnant of cystic duct was noticed. Right common hepatic duct and common hepatic duct are all within normal limit. No residual stone. Minimal sludge was extracted. The patient extubated, tolerated procedure well. IMPRESSION: ERCP plus balloon sweep of common duct. Minimal sludge. PLAN AND DISCUSSION: The patient can be discharged after stabilization and followed up as outpatient in office. [place], [place] OPERATIVE NOTE NAME: NANCY TREVINO UNIT #: [id number] ROOM: DOCTOR: HAFSA RODRIGUEZ MD BIRTHDATE: [birth year] HAFSA RODRIGUEZ MD CM:OPRECORD:OPERATIVE NOTE 1249 1328 HAFSA RODRIGUEZ MD 05/12/18 0920 interface
--- NOTE | ~2018-04-14 | O ---
[place], [place] OPERATIVE NOTE NAME: NANCY TREVINO UNIT #: [id number] ROOM: DOCTOR: HAFSA RODRIGUEZ MD BIRTHDATE: [birth year] DOS: 04/14/2018 GASTROENDOSCOPIC REPORT INDICATION: A 53-year-old morbidly obese patient, status post previous cholecystectomy, ERCP and stenting and with some abdominal pain. He has had stents placed in 12/2017 and we were concerned if this could be secondary to above. ALLERGIES: ASPIRIN, CODEINE, IBUPROFEN. FAMILY HISTORY: Noncontributory. PAST SURGICAL HISTORY: Cholecystectomy, hernia repair, and ERCP papillotomy. PAST MEDICAL HISTORY: Gastroesophageal reflux, hypercholesterolemia, hypertension, asthma, morbid obesity. SOCIAL HISTORY: Nonsmoker, nonalcohol consumer. PROCEDURE: Today's procedure part of investigation is ERCP plus balloon sweep of common duct. PREMEDICATION: By Anesthesia intubation. SCOPE: Olympus side-viewing duodenum scope. REPORT: After putting the patient in left lateral position and application of lubricant to the scope, the scope was introduced; thereafter, under direct visualization, I advanced through the length of esophagus into gastric pouch into duodenal bulb. Ampulla of Vater was defined. Selective cannulization of common duct was undertaken. Guidewire was advanced to right hepatic radicle and hepatic radicles were opacified. At this stage, we find that there is no retention of the stent. The stent that we were looking for has fallen and there was no migration of the stent into the hepatic radicle. A cannulatome removed and a balloon size 12-15 was introduced into the ampulla and advanced to bifurcation of right and left hepatic radicle. Inflated with a pressure 12 and gradually withdrawn as we infused dye inside the common duct. With the inflated status, balloon was removed. The duct entirely opacified. The remnant of cystic duct was noticed. Right common hepatic duct and common hepatic duct are all within normal limit. No residual stone. Minimal sludge was extracted. The patient extubated, tolerated procedure well. IMPRESSION: ERCP plus balloon sweep of common duct. Minimal sludge. PLAN AND DISCUSSION: The patient can be discharged after stabilization and followed up as outpatient in office. [place], [place] OPERATIVE NOTE NAME: NANCY TREVINO UNIT #: [id number] ROOM: DOCTOR: JENNIFER FIGUEREDOHAFSA BIRTHDATE: [birth year] HAFSA RODRIGUEZ MD CM:OPRECORD:OPERATIVE NOTE 1300 1329 HAFSA RODRIGUEZ MD 05/15/18 1029 interface
== END | disposition home or self-care (01) ==
LOC: SDC 04-11 14:00
DX: K80.50 Calculus of bile duct without cholangitis or cholecystitis without obstruction (principal); I10 Essential (primary) hypertension; E78.00 Pure hypercholesterolemia, unspecified; J45.909 Unspecified asthma, uncomplicated; E07.9 Disorder of thyroid, unspecified; M10.9 Gout, unspecified; K21.9 Gastro-esophageal reflux disease without esophagitis; Z90.49 Acquired absence of other specified parts of digestive tract; E66.01 Morbid (severe) obesity due to excess calories; Z98.890 Other specified postprocedural states; Z88.8 Allergy status to other drugs, medicaments and biological substances; Z88.6 Allergy status to analgesic agent; Z68.43 Body mass index [BMI] 50.0-59.9, adult; Z79.899 Other long term (current) drug therapy; Z83.3 Family history of diabetes mellitus

== ENCOUNTER 2018-06-08 07:22 | Emergency (ER) | payer BC ==
[~2018-06-08] VITALS: Ht 157.4 cm; Wt 136.5 kg
[2018-06-08 07:24] VITALS: BP 159/89
== END 2018-06-08 10:06 | disposition home or self-care (01) ==
LOC: ED 07:22
DX: S83.92XA Sprain of unspecified site of left knee, initial encounter (principal); K21.9 Gastro-esophageal reflux disease without esophagitis; E03.9 Hypothyroidism, unspecified; I10 Essential (primary) hypertension; E66.01 Morbid (severe) obesity due to excess calories; J45.909 Unspecified asthma, uncomplicated; Z88.6 Allergy status to analgesic agent; Z79.899 Other long term (current) drug therapy; X50.1XXA Overexertion from prolonged static or awkward postures, initial encounter; Y93.89 Activity, other specified; Y92.89 Other specified places as the place of occurrence of the external cause; Y99.8 Other external cause status

== ENCOUNTER 2018-08-11 07:49 | Emergency (ER) | payer BC ==
[~2018-08-11] VITALS: Ht 157.4 cm; Wt 136.1 kg
[2018-08-11 07:51] VITALS: BP 152/84
[2018-08-11] MEDS ORDERED: AVPAK AZITHROM250 MG PO (08:13)
[2018-08-11] MEDS ORDERED: PREDNISONE50 MG PO (08:13)
[2018-08-11] MEDS ORDERED: PROVENTIL HFA6.7 GM INH (08:13)
[2018-12-31] MEDS ORDERED: CORTISPORIN SOL10 ML OT (22:39)
== END 2018-08-11 08:42 | disposition home or self-care (01) ==
LOC: ED 07:49
DX: J45.901 Unspecified asthma with (acute) exacerbation (principal); J01.90 Acute sinusitis, unspecified; I10 Essential (primary) hypertension; K21.9 Gastro-esophageal reflux disease without esophagitis; E78.00 Pure hypercholesterolemia, unspecified; E66.01 Morbid (severe) obesity due to excess calories; Z98.890 Other specified postprocedural states; Z88.6 Allergy status to analgesic agent; Z88.5 Allergy status to narcotic agent; Z79.899 Other long term (current) drug therapy

== ENCOUNTER 2018-10-01 15:33 | Emergency (ER) | payer BC ==
[~2018-10-01] VITALS: Ht 157.4 cm; Wt 136.1 kg
[~2018-10-01 15:33] MED LIST changes: +AVPAK AZITHROM250 MG PO; +PREDNISONE50 MG PO; +PROVENTIL HFA6.7 GM INH
[2018-10-01 15:34] VITALS: BP 152/83
[2018-10-01] MEDS ORDERED: FLONASE ALLERG9.9 ML NAS (16:29)
[2018-10-01] MEDS ORDERED: ZYRTEC10 MG PO (16:29)
[2018-10-01] MEDS ORDERED: PREDNISONE20 M1 PO (16:29)
[2018-12-31] MEDS ORDERED: CORTISPORIN SOL10 ML OT (22:39)
== END 2018-10-01 16:32 | disposition home or self-care (01) ==
LOC: ED 15:33
DX: J30.9 Allergic rhinitis, unspecified (principal); I10 Essential (primary) hypertension; G40.909 Epilepsy, unspecified, not intractable, without status epilepticus; E78.5 Hyperlipidemia, unspecified; E07.9 Disorder of thyroid, unspecified; Z91.048 Other nonmedicinal substance allergy status; Z88.6 Allergy status to analgesic agent; Z88.5 Allergy status to narcotic agent; Z79.899 Other long term (current) drug therapy

== ENCOUNTER 2019-06-01 12:20 | Emergency (ER) | payer BC ==
[~2019-06-01] VITALS: Ht 157.4 cm; Wt 136.1 kg
[2019-06-01 12:20] VITALS: BP 145/78
[~2019-06-01 12:20] MED LIST changes: +CORTISPORIN SOL10 ML OT; +ZYRTEC10 MG PO
[2019-06-01] MEDS ORDERED: AMOXICILLIN500 M3 PO (13:21)
== END 2019-06-01 13:33 | disposition home or self-care (01) ==
LOC: ED 12:20
DX: J06.9 Acute upper respiratory infection, unspecified (principal); I10 Essential (primary) hypertension; G40.909 Epilepsy, unspecified, not intractable, without status epilepticus; E03.9 Hypothyroidism, unspecified; E78.5 Hyperlipidemia, unspecified; Z88.6 Allergy status to analgesic agent; Z88.5 Allergy status to narcotic agent; Z88.8 Allergy status to other drugs, medicaments and biological substances; Z79.899 Other long term (current) drug therapy; Z90.49 Acquired absence of other specified parts of digestive tract

== ENCOUNTER 2019-08-27 20:17 | Emergency (ER) | payer BC ==
[~2019-08-27] VITALS: Wt 142.9 kg
[2019-08-27 20:17] VITALS: BP 162/96
[~2019-08-27 20:17] MED LIST changes: +AMOXICILLIN500 M3 PO
== END 2019-08-27 21:05 | disposition home or self-care (01) ==
LOC: ED 20:17
DX: S01.01XA Laceration without foreign body of scalp, initial encounter (principal); Z79.899 Other long term (current) drug therapy; Z79.2 Long term (current) use of antibiotics; Z88.6 Allergy status to analgesic agent; Z88.5 Allergy status to narcotic agent; Z88.8 Allergy status to other drugs, medicaments and biological substances; Z90.49 Acquired absence of other specified parts of digestive tract; W22.8XXA Striking against or struck by other objects, initial encounter; Y93.89 Activity, other specified; Y92.89 Other specified places as the place of occurrence of the external cause; Y99.8 Other external cause status

== ENCOUNTER 2019-09-03 07:14 | Emergency (ER) | payer BC ==
[~2019-09-03] VITALS: Ht 157.4 cm; Wt 145.1 kg
[2019-09-03 07:17] VITALS: BP 149/72
== END 2019-09-03 08:11 | disposition home or self-care (01) ==
LOC: ED 07:14
DX: S01.01XD Laceration without foreign body of scalp, subsequent encounter (principal); E66.01 Morbid (severe) obesity due to excess calories; J45.909 Unspecified asthma, uncomplicated; I10 Essential (primary) hypertension; K21.9 Gastro-esophageal reflux disease without esophagitis; E03.9 Hypothyroidism, unspecified; E78.00 Pure hypercholesterolemia, unspecified; Z88.6 Allergy status to analgesic agent; Z88.5 Allergy status to narcotic agent; Z88.8 Allergy status to other drugs, medicaments and biological substances; Z79.899 Other long term (current) drug therapy; Z79.2 Long term (current) use of antibiotics; Z90.49 Acquired absence of other specified parts of digestive tract; W22.8XXD Striking against or struck by other objects, subsequent encounter

== ENCOUNTER 2019-10-02 07:49 | Emergency (ER) | payer BC ==
[~2019-10-02] VITALS: Ht 157.4 cm; Wt 137.0 kg
[2019-10-02 07:54] VITALS: BP 156/87
[2019-10-02] MEDS ORDERED: DOXYCYCLINE100 M3 PO (08:46)
== END 2019-10-02 08:55 | disposition home or self-care (01) ==
LOC: ED 07:49
DX: J32.9 Chronic sinusitis, unspecified (principal); J40 Bronchitis, not specified as acute or chronic; I10 Essential (primary) hypertension; E03.9 Hypothyroidism, unspecified; K21.9 Gastro-esophageal reflux disease without esophagitis; E78.00 Pure hypercholesterolemia, unspecified; Z79.82 Long term (current) use of aspirin; Z88.5 Allergy status to narcotic agent; Z88.8 Allergy status to other drugs, medicaments and biological substances; Z79.2 Long term (current) use of antibiotics; Z79.899 Other long term (current) drug therapy

== ENCOUNTER 2019-11-02 05:53 | Emergency (ER) | payer BC ==
[~2019-11-02] VITALS: Ht 157.4 cm; Wt 147.4 kg
[~2019-11-02 05:53] MED LIST changes: +DOXYCYCLINE100 M3 PO
[2019-11-02 06:02] VITALS: BP 155/89
[2019-11-02 07:06] LABS: BASO % 0.2 % (0.0-1.0); EOS # 0.4 10*3/uL (0.0-0.4); EOS % 3.3 % (1.0-4.0); HEMATOCRIT 38.9 % (42.0-52.0); HEMOGLOBIN 11.5 g/dl (14.0-18.0); LYMPH # 1.4 10*3/uL (1.3-4.4); LYMPH % 12.3 % (27.0-41.0); MEAN CELL VOLUME 84.9 fl (80.0-94.0); MEAN CORPUSCULAR HGB 25.1 pg (27.0-31.0); MEAN CORPUSCULAR HGB CONC 29.6 g/dl (33.0-37.0); MEAN PLATELET VOLUME 8.9 fl (9.6-12.3); MONO # 0.7 10*3/uL (0.1-1.0); MONO % 6.4 % (3.0-9.0); NEUT # 8.6 10*3/uL (2.3-7.9); NEUT % 77.4 % (47.0-73.0); PLATELET COUNT AUTOMATED 336 10*3/uL (130-400); RED BLOOD COUNT 4.58 10*6/uL (4.50-5.90); RED CELL DISTRI WIDTH 15.1 % (0-14.5); WHITE BLOOD COUNT 11.1 10*3/uL (4.8-10.8)
[2019-11-02 07:24] LABS: ALKALINE PHOSPHATASE 123 U/L (45-117); BUN 9 mg/dl (7-24); CHLORIDE 96 mmol/L (98-107); CREATININE 0.82 mg/dL (0.70-1.30); POTASSIUM 3.7 mmol/L (3.5-5.1); SGOT/AST 23 IU/L (3-35); SGPT/ALT 27 U/L (12-78); SODIUM 135 mmol/L (136-145); TOTAL PROTEIN 7.5 gm/dL (6.4-8.2)
[2019-11-02] MEDS ORDERED: DOXYCYCLINE100 M3 PO (08:49)
== END 2019-11-02 09:01 | disposition home or self-care (01) ==
LOC: ED 05:53
PROVIDERS: Emergency Medicine
DX: L03.115 Cellulitis of right lower limb (principal); E03.9 Hypothyroidism, unspecified; K21.9 Gastro-esophageal reflux disease without esophagitis; R56.9 Unspecified convulsions; E78.00 Pure hypercholesterolemia, unspecified; M10.9 Gout, unspecified; J45.909 Unspecified asthma, uncomplicated; Z88.5 Allergy status to narcotic agent; Z88.8 Allergy status to other drugs, medicaments and biological substances; Z79.899 Other long term (current) drug therapy

== ENCOUNTER → 2020-06-17 | Outpatient (CLI) | payer BC | END | disposition home or self-care (01) | LOC: CARD 11:35 | PROVIDERS: ATTEND Nurse Practitioner Primary Care | DX: I44.4 Left anterior fascicular block (principal); I10 Essential (primary) hypertension ==

== ENCOUNTER 2020-09-12 07:11 | Emergency (ER) | payer SELFPAY ==
[~2020-09-12] VITALS: Ht 157.4 cm; Wt 147.4 kg
[2020-09-12 07:18] VITALS: BP 144/65
[2020-09-12 08:00] LABS: BASO % 0.2 % (0.0-1.0); EOS # 0.4 10*3/uL (0.0-0.4); EOS % 4.7 % (1.0-4.0); LYMPH # 1.4 10*3/uL (1.3-4.4); LYMPH % 15.2 % (27.0-41.0); MEAN CORPUSCULAR HGB 24.6 pg (27.0-31.0); MEAN CORPUSCULAR HGB CONC 28.9 g/dl (33.0-37.0); MEAN PLATELET VOLUME 8.8 fl (9.6-12.3); MONO # 0.6 10*3/uL (0.1-1.0); MONO % 6.5 % (3.0-9.0); NEUT # 6.5 10*3/uL (2.3-7.9); NEUT % 72.7 % (47.0-73.0); PLATELET COUNT AUTOMATED 386 10*3/uL (130-400); RED BLOOD COUNT 4.47 10*6/uL (4.50-5.90); RED CELL DISTRI WIDTH 15.3 % (0-14.5)
[2020-09-12 08:10] LABS: ACT PARTIAL THROMBO TIME 28.2 SECONDS (20.0-32.1)
[2020-09-12 08:23] LABS: ALBUMIN 3.3 gm/dl (3.1-4.5); ALKALINE PHOSPHATASE 116 U/L (45-117); BUN 7 mg/dl (7-24); CHLORIDE 102 mmol/L (98-107); CREATININE 0.85 mg/dL (0.70-1.30); POTASSIUM 3.5 mmol/L (3.5-5.1); SGOT/AST 20 IU/L (3-35); SGPT/ALT 30 U/L (12-78); SODIUM 138 mmol/L (136-145); TOTAL PROTEIN 8.1 gm/dL (6.4-8.2)
[2020-09-12 08:25] LABS: TROPONIN I < 0.015 ng/ml (<0.045)
== END 2020-09-12 09:53 | disposition home or self-care (01) ==
LOC: ED 07:11
PROVIDERS: Emergency Medicine
DX: R60.0 Localized edema (principal); M79.604 Pain in right leg; M79.605 Pain in left leg; J45.909 Unspecified asthma, uncomplicated; K21.9 Gastro-esophageal reflux disease without esophagitis; I10 Essential (primary) hypertension; E03.9 Hypothyroidism, unspecified; E78.00 Pure hypercholesterolemia, unspecified; Z88.6 Allergy status to analgesic agent; Z88.5 Allergy status to narcotic agent; Z88.8 Allergy status to other drugs, medicaments and biological substances; Z79.2 Long term (current) use of antibiotics; Z79.899 Other long term (current) drug therapy; Z90.49 Acquired absence of other specified parts of digestive tract; Z98.890 Other specified postprocedural states

== ENCOUNTER → 2020-10-21 | Outpatient (CLI) | payer BC ==
[2020-10-21 09:31] LABS: BUN 9 mg/dl (7-24); CHLORIDE 98 mmol/L (98-107); CHOLESTEROL 191 mg/dL (<200); CREATININE 0.86 mg/dL (0.70-1.30); POTASSIUM 4.1 mmol/L (3.5-5.1); SODIUM 133 mmol/L (136-145); TRIGLYCERIDES 98 mg/dl (<150); VLDL CHOLESTEROL 20 mg/dL (6-40)
[2020-10-21 09:32] LABS: HDL CHOLESTEROL 49 mg/dl (40-60); LDL CHOLESTEROL 122 mg/dL (9-159)
== END | disposition home or self-care (01) ==
LOC: LAB 08:06
PROVIDERS: ATTEND Nurse Practitioner Primary Care
DX: I10 Essential (primary) hypertension (principal)

== ENCOUNTER 2021-03-24 17:31 | Emergency (ER) | payer SELFPAY ==
[~2021-03-24] VITALS: Ht 157.4 cm; Wt 147.4 kg
[2021-03-24 18:25] VITALS: BP 134/47
[2021-03-24] MEDS ORDERED: SEPTDS PO (19:43)
== END 2021-03-24 20:15 | disposition home or self-care (01) ==
LOC: ED 17:31
DX: L03.116 Cellulitis of left lower limb (principal); Z88.6 Allergy status to analgesic agent; Z88.5 Allergy status to narcotic agent; Z79.899 Other long term (current) drug therapy; Z79.2 Long term (current) use of antibiotics; Z98.890 Other specified postprocedural states; Z90.49 Acquired absence of other specified parts of digestive tract

== ENCOUNTER 2021-05-27 05:46 | Inpatient (IN) | payer OTHER ==
[~2021-05-27] VITALS: Ht 157.5 cm; Wt 119.1 kg
[2021-05-27] VITALS (7 sets, daily range): BP systolic 113–142; BP diastolic 49–77
[~2021-05-27 05:46] MED LIST changes: +SEPTDS PO
[2021-05-27 06:34] LABS: BASO % 0.2 % (0.0-1.0); HEMATOCRIT 35.8 % (42.0-52.0); LYMPH # 1.1 10*3/uL (1.3-4.4); LYMPH % 11.3 % (27.0-41.0); MEAN CELL VOLUME 78.5 fl (80.0-94.0); MEAN CORPUSCULAR HGB 22.1 pg (27.0-31.0); MEAN CORPUSCULAR HGB CONC 28.2 g/dl (33.0-37.0); MEAN PLATELET VOLUME 8.4 fl (9.6-12.3); MONO # 0.7 10*3/uL (0.1-1.0); MONO % 6.9 % (3.0-9.0); NEUT # 7.6 10*3/uL (2.3-7.9); NEUT % 81.4 % (47.0-73.0); PLATELET COUNT AUTOMATED 447 10*3/uL (130-400); RED BLOOD COUNT 4.56 10*6/uL (4.50-5.90); RED CELL DISTRI WIDTH 16.3 % (0-14.5); WHITE BLOOD COUNT 9.4 10*3/uL (4.8-10.8)
[2021-05-27 06:44] LABS: ALBUMIN 2.8 gm/dl (3.1-4.5); ALKALINE PHOSPHATASE 121 U/L (45-117); BUN 8 mg/dl (7-24); CHLORIDE 90 mmol/L (98-107); CREATININE 0.79 mg/dL (0.70-1.30); POTASSIUM 4.5 mmol/L (3.5-5.1); SGOT/AST 37 IU/L (3-35); SGPT/ALT 36 U/L (12-78); SODIUM 129 mmol/L (136-145); TOTAL PROTEIN 7.8 gm/dL (6.4-8.2)
[2021-05-27] MEDS ORDERED: FUROSEMIDE20 M1 PO (17:37)
[2021-05-27] MEDS ORDERED: POTASSIUM CHLO20 ME4 PO (17:37)
[2021-05-28 06:18] LABS: BASO % 0.3 % (0.0-1.0); HEMATOCRIT 34.9 % (42.0-52.0); LYMPH # 0.9 10*3/uL (1.3-4.4); LYMPH % 13.8 % (27.0-41.0); MEAN CELL VOLUME 79.1 fl (80.0-94.0); MEAN CORPUSCULAR HGB 22.2 pg (27.0-31.0); MEAN CORPUSCULAR HGB CONC 28.1 g/dl (33.0-37.0); MONO # 0.5 10*3/uL (0.1-1.0); MONO % 6.9 % (3.0-9.0); NEUT # 5.3 10*3/uL (2.3-7.9); NEUT % 78.9 % (47.0-73.0); PLATELET COUNT AUTOMATED 439 10*3/uL (130-400); RED BLOOD COUNT 4.41 10*6/uL (4.50-5.90); RED CELL DISTRI WIDTH 16.7 % (0-14.5); WHITE BLOOD COUNT 6.7 10*3/uL (4.8-10.8)
[2021-05-28 06:38] LABS: ALBUMIN 2.4 gm/dl (3.1-4.5); BUN 9 mg/dl (7-24); CHLORIDE 93 mmol/L (98-107); POTASSIUM 3.9 mmol/L (3.5-5.1); SODIUM 134 mmol/L (136-145)
[2021-05-28 06:44] LABS: ALKALINE PHOSPHATASE 105 U/L (45-117); CHOLESTEROL 155 mg/dL (<200); CREATININE 0.71 mg/dL (0.70-1.30); FREE T4 1.38 ng/dl (0.76-1.46); LDL CHOLESTEROL 88 mg/dL (9-159); SGOT/AST 30 IU/L (3-35); SGPT/ALT 30 U/L (12-78); TOTAL PROTEIN 7.2 gm/dL (6.4-8.2); TRIGLYCERIDES 79 mg/dl (<150)
[2021-05-28 07:19] LABS: VITAMIN D, 25-HYDROXY 26.6 ng/mL (30-100)
[2021-05-28 08:00] VITALS: BP 127/68
[2021-05-28 12:00] VITALS: BP 140/56
[2021-05-28 16:00] VITALS: BP 135/52
[2021-05-28 20:00] VITALS: BP 118/50
[2021-05-29] VITALS: BP 104/55
[2021-05-29 08:00] VITALS: BP 114/65
[2021-05-29 08:03] LABS: BASO % 0.3 % (0.0-1.0); HEMATOCRIT 35.7 % (42.0-52.0); LYMPH # 1.2 10*3/uL (1.3-4.4); LYMPH % 16.2 % (27.0-41.0); MEAN CELL VOLUME 78.5 fl (80.0-94.0); MEAN CORPUSCULAR HGB 22.4 pg (27.0-31.0); MEAN CORPUSCULAR HGB CONC 28.6 g/dl (33.0-37.0); MEAN PLATELET VOLUME 8.4 fl (9.6-12.3); MONO # 0.5 10*3/uL (0.1-1.0); MONO % 6.6 % (3.0-9.0); NEUT # 5.5 10*3/uL (2.3-7.9); NEUT % 76.6 % (47.0-73.0); PLATELET COUNT AUTOMATED 386 10*3/uL (130-400); RED BLOOD COUNT 4.55 10*6/uL (4.50-5.90); RED CELL DISTRI WIDTH 16.9 % (0-14.5); WHITE BLOOD COUNT 7.2 10*3/uL (4.8-10.8)
[2021-05-29 08:42] LABS: ALBUMIN 2.5 gm/dl (3.1-4.5); ALKALINE PHOSPHATASE 104 U/L (45-117); BUN 12 mg/dl (7-24); CREATININE 0.78 mg/dL (0.70-1.30); SGOT/AST 28 IU/L (3-35); SGPT/ALT 33 U/L (12-78); TOTAL PROTEIN 7.4 gm/dL (6.4-8.2)
[2021-05-29 08:49] LABS: CHLORIDE 92 mmol/L (98-107); POTASSIUM 3.8 mmol/L (3.5-5.1); SODIUM 133 mmol/L (136-145)
[2021-05-29 12:00] VITALS: BP 128/46
[2021-05-29 16:00] VITALS: BP 108/25
[2021-05-29 20:00] VITALS: BP 128/49
[2021-05-30] VITALS: BP 116/62
[2021-05-30 06:16] LABS: BASO % 0.3 % (0.0-1.0); EOS # 0.3 10*3/uL (0.0-0.4); EOS % 3.4 % (1.0-4.0); HEMATOCRIT 35.9 % (42.0-52.0); LYMPH # 1.1 10*3/uL (1.3-4.4); LYMPH % 15.1 % (27.0-41.0); MEAN CELL VOLUME 79.1 fl (80.0-94.0); MEAN CORPUSCULAR HGB 22.2 pg (27.0-31.0); MEAN CORPUSCULAR HGB CONC 28.1 g/dl (33.0-37.0); MEAN PLATELET VOLUME 8.5 fl (9.6-12.3); MONO # 0.4 10*3/uL (0.1-1.0); MONO % 5.1 % (3.0-9.0); NEUT # 5.6 10*3/uL (2.3-7.9); NEUT % 75.7 % (47.0-73.0); PLATELET COUNT AUTOMATED 407 10*3/uL (130-400); RED BLOOD COUNT 4.54 10*6/uL (4.50-5.90); RED CELL DISTRI WIDTH 17.1 % (0-14.5); WHITE BLOOD COUNT 7.4 10*3/uL (4.8-10.8)
[2021-05-30 06:33] LABS: ALBUMIN 2.5 gm/dl (3.1-4.5); BUN 12 mg/dl (7-24); CHLORIDE 91 mmol/L (98-107); CREATININE 0.82 mg/dL (0.70-1.30); SGOT/AST 24 IU/L (3-35); SGPT/ALT 34 U/L (12-78); SODIUM 130 mmol/L (136-145)
[2021-05-30 06:35] LABS: ALKALINE PHOSPHATASE 102 U/L (45-117); TOTAL PROTEIN 7.5 gm/dL (6.4-8.2)
[2021-05-30 08:00] VITALS: BP 114/47
[2021-05-30 12:00] VITALS: BP 122/39
[2021-05-30] MEDS ORDERED: MONODOX100 MG PO (12:40)
== END 2021-05-30 14:24 | disposition home or self-care (01) | DRG 603 ==
LOC: ED 05:46 → EDHOLD 09:04 → 4E 09:04 → EDHOLD 11:17 → 4E 15:08
PROVIDERS: Internal Medicine; ADMIT Internal Medicine; ATTEND Internal Medicine
DX: L03.116 Cellulitis of left lower limb (principal); E87.1 Hypo-osmolality and hyponatremia; J90 Pleural effusion, not elsewhere classified; D50.9 Iron deficiency anemia, unspecified; E03.9 Hypothyroidism, unspecified; R00.0 Tachycardia, unspecified; D75.839 Thrombocytosis, unspecified; I87.8 Other specified disorders of veins; E87.8 Other disorders of electrolyte and fluid balance, not elsewhere classified; R73.9 Hyperglycemia, unspecified; R74.01 Elevation of levels of liver transaminase levels; I10 Essential (primary) hypertension; E78.5 Hyperlipidemia, unspecified; Z79.899 Other long term (current) drug therapy; Z86.16 Personal history of COVID-19; Z88.6 Allergy status to analgesic agent; Z90.49 Acquired absence of other specified parts of digestive tract; Z83.3 Family history of diabetes mellitus; Z81.1 Family history of alcohol abuse and dependence

== ENCOUNTER → 2021-06-04 | Outpatient (CLI) | payer OTHER ==
[~2021-06-04] MED LIST changes: +DOXYCYCLINE HY100 M3 PO; +FUROSEMIDE20 M1 PO; +MONODOX100 MG PO; +OMEPRAZOLE MAGN20 MG PO; +POTASSIUM CHLO20 ME4 PO; +ZYRTEC10 M3 PO
== END ==
LOC: WOUNDCARE 00:31
PROVIDERS: ATTEND Nurse Practitioner Family
DX: L97.822 Non-pressure chronic ulcer of other part of left lower leg with fat layer exposed (principal); I10 Essential (primary) hypertension; E66.01 Morbid (severe) obesity due to excess calories; E78.49 Other hyperlipidemia; R73.09 Other abnormal glucose; J45.909 Unspecified asthma, uncomplicated; E03.9 Hypothyroidism, unspecified; Z90.49 Acquired absence of other specified parts of digestive tract; Z79.899 Other long term (current) drug therapy; Z68.44 Body mass index [BMI] 60.0-69.9, adult

== ENCOUNTER → 2021-06-11 | Outpatient (CLI) | payer OTHER, MEDICAID | LOC: WOUNDCARE 04:55 | PROVIDERS: ATTEND Nurse Practitioner Family | DX: L97.822 Non-pressure chronic ulcer of other part of left lower leg with fat layer exposed (principal); I10 Essential (primary) hypertension; E78.49 Other hyperlipidemia; E66.01 Morbid (severe) obesity due to excess calories; R73.09 Other abnormal glucose; J45.909 Unspecified asthma, uncomplicated; E03.9 Hypothyroidism, unspecified; Z90.49 Acquired absence of other specified parts of digestive tract; Z79.899 Other long term (current) drug therapy; Z68.44 Body mass index [BMI] 60.0-69.9, adult ==

== ENCOUNTER → 2021-06-17 | Outpatient (CLI) | payer OTHER, MEDICAID | LOC: WOUNDCARE 01:03 | PROVIDERS: ATTEND Nurse Practitioner Family | DX: L97.822 Non-pressure chronic ulcer of other part of left lower leg with fat layer exposed (principal); L97.812 Non-pressure chronic ulcer of other part of right lower leg with fat layer exposed; I10 Essential (primary) hypertension; E78.49 Other hyperlipidemia; E66.01 Morbid (severe) obesity due to excess calories; R73.09 Other abnormal glucose; J45.909 Unspecified asthma, uncomplicated; E03.9 Hypothyroidism, unspecified; Z90.49 Acquired absence of other specified parts of digestive tract; Z79.899 Other long term (current) drug therapy; Z68.44 Body mass index [BMI] 60.0-69.9, adult ==

== ENCOUNTER 2021-06-21 01:32 | Inpatient (IN) | payer OTHER, MEDICAID ==
[2021-06-21] VITALS (7 sets, daily range): BP systolic 102–155; BP diastolic 50–85
[~2021-06-21] VITALS: Ht 157.5 cm; Wt 158.8 kg
[~2021-06-21 01:32] MED LIST changes: -DOXYCYCLINE HY100 M3 PO; -OMEPRAZOLE MAGN20 MG PO; -ZYRTEC10 M3 PO
[2021-06-21 03:24] LABS: HEMATOCRIT 39.8 % (42.0-52.0); MEAN CELL VOLUME 79.1 fl (80.0-94.0); MEAN CORPUSCULAR HGB 22.7 pg (27.0-31.0); MEAN CORPUSCULAR HGB CONC 28.6 g/dl (33.0-37.0); MEAN PLATELET VOLUME 8.9 fl (9.6-12.3); PLATELET COUNT AUTOMATED 420 10*3/uL (130-400); RED BLOOD COUNT 5.03 10*6/uL (4.50-5.90); RED CELL DISTRI WIDTH 17.4 % (0-14.5); WHITE BLOOD COUNT 24.6 10*3/uL (4.8-10.8)
[2021-06-21 03:43] LABS: MICROCYTOSIS SLIGHT; POLYCHROMASIA SLIGHT; TOTAL CELLS COUNTED 100 #CELLS
[2021-06-21 03:44] LABS: ALBUMIN 3.4 gm/dl (3.1-4.5); ALKALINE PHOSPHATASE 101 U/L (45-117); BUN 19 mg/dl (7-24); CHLORIDE 97 mmol/L (98-107); CREATININE 0.98 mg/dL (0.70-1.30); PLATELET SUFFICIENCY NORMAL (NORMAL); POTASSIUM 4.6 mmol/L (3.5-5.1); SGOT/AST 19 IU/L (3-35); SGPT/ALT 27 U/L (12-78); SODIUM 133 mmol/L (136-145); TOTAL PROTEIN 8.1 gm/dL (6.4-8.2)
[2021-06-21 03:49] LABS: TROPONIN I < 0.015 ng/ml (<0.045)
[2021-06-21] MEDS ORDERED: ZYRTEC10 M3 PO (16:14)
[2021-06-21] MEDS ORDERED: OMEPRAZOLE MAGN20 MG PO (16:14)
[2021-06-22] VITALS: BP 96/49
[2021-06-22 06:57] LABS: HEMATOCRIT 33.3 % (42.0-52.0); MEAN CELL VOLUME 79.9 fl (80.0-94.0); MEAN CORPUSCULAR HGB CONC 28.8 g/dl (33.0-37.0); MEAN PLATELET VOLUME 9.3 fl (9.6-12.3); PLATELET COUNT AUTOMATED 331 10*3/uL (130-400); RED BLOOD COUNT 4.17 10*6/uL (4.50-5.90); RED CELL DISTRI WIDTH 18.1 % (0-14.5); WHITE BLOOD COUNT 14.7 10*3/uL (4.8-10.8)
[2021-06-22 07:13] LABS: ALBUMIN 2.5 gm/dl (3.1-4.5); ALKALINE PHOSPHATASE 80 U/L (45-117); BUN 23 mg/dl (7-24); CHLORIDE 99 mmol/L (98-107); CREATININE 1.15 mg/dL (0.70-1.30); POTASSIUM 4.3 mmol/L (3.5-5.1); SGOT/AST 41 IU/L (3-35); SGPT/ALT 24 U/L (12-78); SODIUM 134 mmol/L (136-145); TOTAL PROTEIN 7.6 gm/dL (6.4-8.2)
[2021-06-22 08:00] VITALS: BP 108/57
[2021-06-22 08:49] LABS: MICROCYTOSIS SLIGHT; OVALOCYTES FEW; PLATELET SUFFICIENCY NORMAL (NORMAL); POLYCHROMASIA SLIGHT; TOTAL CELLS COUNTED 100 #CELLS
[2021-06-22 12:00] VITALS: BP 105/58
[2021-06-22 16:00] VITALS: BP 99/52
[2021-06-22 20:00] VITALS: BP 102/56
[2021-06-23] VITALS: BP 110/56
[2021-06-23 06:33] LABS: BASO % 0.1 % (0.0-1.0); EOS # 0.1 10*3/uL (0.0-0.4); EOS % 1.3 % (1.0-4.0); LYMPH # 0.6 10*3/uL (1.3-4.4); LYMPH % 8.4 % (27.0-41.0); MEAN CELL VOLUME 82.1 fl (80.0-94.0); MEAN CORPUSCULAR HGB 22.9 pg (27.0-31.0); MEAN CORPUSCULAR HGB CONC 27.9 g/dl (33.0-37.0); MEAN PLATELET VOLUME 9.1 fl (9.6-12.3); MONO # 0.5 10*3/uL (0.1-1.0); MONO % 7.9 % (3.0-9.0); NEUT # 5.6 10*3/uL (2.3-7.9); NEUT % 81.7 % (47.0-73.0); PLATELET COUNT AUTOMATED 302 10*3/uL (130-400); RED BLOOD COUNT 4.02 10*6/uL (4.50-5.90); WHITE BLOOD COUNT 6.8 10*3/uL (4.8-10.8)
[2021-06-23 06:53] LABS: ALBUMIN 2.4 gm/dl (3.1-4.5); ALKALINE PHOSPHATASE 79 U/L (45-117); BUN 19 mg/dl (7-24); CHLORIDE 102 mmol/L (98-107); CREATININE 1.05 mg/dL (0.70-1.30); POTASSIUM 3.9 mmol/L (3.5-5.1); SGOT/AST 36 IU/L (3-35); SGPT/ALT 27 U/L (12-78); SODIUM 138 mmol/L (136-145); TOTAL PROTEIN 7.5 gm/dL (6.4-8.2)
[2021-06-23 08:00] VITALS: BP 110/52
[2021-06-23 12:00] VITALS: BP 124/63
[2021-06-23] MEDS ORDERED: CEPHALEXIN500 M1 PO (12:09)
[2021-06-23] MEDS ORDERED: DOXYCYCLINE HY100 M3 PO (12:09)
== END 2021-06-23 16:54 | disposition home health service (06) | DRG 871 ==
LOC: ED 01:32 → 5E 04:59 → EDHOLD 04:59 → 5E 13:05
PROVIDERS: Emergency Medicine; Internal Medicine; ADMIT Student in an Organized Health Care Education/Training Program; ATTEND Student in an Organized Health Care Education/Training Program
DX: A41.9 Sepsis, unspecified organism (principal); J18.9 Pneumonia, unspecified organism; J96.01 Acute respiratory failure with hypoxia; E87.2 Acidosis; E87.1 Hypo-osmolality and hyponatremia; L03.116 Cellulitis of left lower limb; R65.20 Severe sepsis without septic shock; D50.9 Iron deficiency anemia, unspecified; D75.839 Thrombocytosis, unspecified; E87.8 Other disorders of electrolyte and fluid balance, not elsewhere classified; R73.9 Hyperglycemia, unspecified; I87.2 Venous insufficiency (chronic) (peripheral); E03.9 Hypothyroidism, unspecified; K21.9 Gastro-esophageal reflux disease without esophagitis; J45.909 Unspecified asthma, uncomplicated; I10 Essential (primary) hypertension; I73.9 Peripheral vascular disease, unspecified; E78.5 Hyperlipidemia, unspecified; E66.01 Morbid (severe) obesity due to excess calories; Z88.5 Allergy status to narcotic agent; Z88.6 Allergy status to analgesic agent; Z90.49 Acquired absence of other specified parts of digestive tract; Z79.51 Long term (current) use of inhaled steroids; Z79.899 Other long term (current) drug therapy

== ENCOUNTER → 2021-06-26 | Outpatient (CLI) | payer OTHER, MEDICAID ==
[~2021-06-26] MED LIST changes: +DOXYCYCLINE HY100 M3 PO; +OMEPRAZOLE MAGN20 MG PO; +ZYRTEC10 M3 PO
== END ==
LOC: WOUNDCARE 00:55
PROVIDERS: ATTEND Nurse Practitioner Family
DX: L97.822 Non-pressure chronic ulcer of other part of left lower leg with fat layer exposed (principal); L97.812 Non-pressure chronic ulcer of other part of right lower leg with fat layer exposed; I10 Essential (primary) hypertension; E78.49 Other hyperlipidemia; E66.01 Morbid (severe) obesity due to excess calories; E03.9 Hypothyroidism, unspecified; R73.09 Other abnormal glucose; J45.909 Unspecified asthma, uncomplicated; Z90.49 Acquired absence of other specified parts of digestive tract; Z79.899 Other long term (current) drug therapy; Z68.44 Body mass index [BMI] 60.0-69.9, adult

== ENCOUNTER → 2021-07-01 | Outpatient (CLI) | payer OTHER, MEDICAID | LOC: WOUNDCARE 00:28 | PROVIDERS: ATTEND Nurse Practitioner Family | DX: L97.822 Non-pressure chronic ulcer of other part of left lower leg with fat layer exposed (principal); L97.812 Non-pressure chronic ulcer of other part of right lower leg with fat layer exposed; E66.01 Morbid (severe) obesity due to excess calories; I10 Essential (primary) hypertension; E78.49 Other hyperlipidemia; E03.9 Hypothyroidism, unspecified; R73.09 Other abnormal glucose; J45.909 Unspecified asthma, uncomplicated; Z90.49 Acquired absence of other specified parts of digestive tract; Z79.899 Other long term (current) drug therapy; Z68.44 Body mass index [BMI] 60.0-69.9, adult ==

== ENCOUNTER → 2021-07-06 | Outpatient (CLI) | payer OTHER, MEDICAID | LOC: WOUNDCARE 10:27 | PROVIDERS: ATTEND Nurse Practitioner Family | DX: L97.822 Non-pressure chronic ulcer of other part of left lower leg with fat layer exposed (principal); L97.812 Non-pressure chronic ulcer of other part of right lower leg with fat layer exposed; I10 Essential (primary) hypertension; E78.49 Other hyperlipidemia; E66.01 Morbid (severe) obesity due to excess calories; E03.9 Hypothyroidism, unspecified; R73.09 Other abnormal glucose; J45.909 Unspecified asthma, uncomplicated; Z90.49 Acquired absence of other specified parts of digestive tract; Z79.899 Other long term (current) drug therapy; Z68.44 Body mass index [BMI] 60.0-69.9, adult ==

== ENCOUNTER → 2021-07-13 | Outpatient (CLI) | payer OTHER, MEDICAID | LOC: WOUNDCARE 05:21 | PROVIDERS: ATTEND Nurse Practitioner Family | DX: L97.822 Non-pressure chronic ulcer of other part of left lower leg with fat layer exposed (principal); I10 Essential (primary) hypertension; E66.01 Morbid (severe) obesity due to excess calories; E78.49 Other hyperlipidemia; E03.9 Hypothyroidism, unspecified; R73.09 Other abnormal glucose; R06.02 Shortness of breath; J45.909 Unspecified asthma, uncomplicated; Z90.49 Acquired absence of other specified parts of digestive tract; Z79.899 Other long term (current) drug therapy; Z68.44 Body mass index [BMI] 60.0-69.9, adult ==

== ENCOUNTER → 2021-07-20 | Outpatient (CLI) | payer OTHER | LOC: WOUNDCARE 00:46 | PROVIDERS: ATTEND Nurse Practitioner Family | DX: L97.822 Non-pressure chronic ulcer of other part of left lower leg with fat layer exposed (principal); I10 Essential (primary) hypertension; E66.01 Morbid (severe) obesity due to excess calories; E78.49 Other hyperlipidemia; E03.9 Hypothyroidism, unspecified; R73.09 Other abnormal glucose; J45.909 Unspecified asthma, uncomplicated; Z90.49 Acquired absence of other specified parts of digestive tract; Z79.899 Other long term (current) drug therapy; Z68.44 Body mass index [BMI] 60.0-69.9, adult ==

== ENCOUNTER → 2021-07-27 | Outpatient (CLI) | payer OTHER | LOC: WOUNDCARE 01:11 | PROVIDERS: ATTEND Nurse Practitioner Family | DX: L97.822 Non-pressure chronic ulcer of other part of left lower leg with fat layer exposed (principal); I10 Essential (primary) hypertension; E66.01 Morbid (severe) obesity due to excess calories; E78.49 Other hyperlipidemia; E03.9 Hypothyroidism, unspecified; R73.09 Other abnormal glucose; J45.909 Unspecified asthma, uncomplicated; Z90.49 Acquired absence of other specified parts of digestive tract; Z79.899 Other long term (current) drug therapy; Z68.44 Body mass index [BMI] 60.0-69.9, adult ==

== ENCOUNTER → 2021-08-05 | Outpatient (CLI) | payer OTHER | LOC: WOUNDCARE 01:27 | PROVIDERS: ATTEND Nurse Practitioner Family | DX: L97.822 Non-pressure chronic ulcer of other part of left lower leg with fat layer exposed (principal); I10 Essential (primary) hypertension; E66.01 Morbid (severe) obesity due to excess calories; E78.49 Other hyperlipidemia; E03.9 Hypothyroidism, unspecified; R73.09 Other abnormal glucose; J45.909 Unspecified asthma, uncomplicated; Z90.49 Acquired absence of other specified parts of digestive tract; Z79.899 Other long term (current) drug therapy; Z68.44 Body mass index [BMI] 60.0-69.9, adult ==

== ENCOUNTER → 2021-08-10 | Outpatient (CLI) | payer OTHER | LOC: WOUNDCARE 02:43 | PROVIDERS: ATTEND Nurse Practitioner Family | DX: L97.822 Non-pressure chronic ulcer of other part of left lower leg with fat layer exposed (principal); I10 Essential (primary) hypertension; E66.01 Morbid (severe) obesity due to excess calories; E78.49 Other hyperlipidemia; E03.9 Hypothyroidism, unspecified; R73.09 Other abnormal glucose; J45.909 Unspecified asthma, uncomplicated; Z90.49 Acquired absence of other specified parts of digestive tract; Z79.899 Other long term (current) drug therapy; Z68.44 Body mass index [BMI] 60.0-69.9, adult ==

== ENCOUNTER → 2021-08-17 | Outpatient (CLI) | payer OTHER | LOC: WOUNDCARE 02:19 | PROVIDERS: ATTEND Nurse Practitioner Family | DX: L97.822 Non-pressure chronic ulcer of other part of left lower leg with fat layer exposed (principal); L97.812 Non-pressure chronic ulcer of other part of right lower leg with fat layer exposed; E66.01 Morbid (severe) obesity due to excess calories; E03.9 Hypothyroidism, unspecified; E78.49 Other hyperlipidemia; R73.09 Other abnormal glucose; I87.8 Other specified disorders of veins; I10 Essential (primary) hypertension; J45.909 Unspecified asthma, uncomplicated; Z68.44 Body mass index [BMI] 60.0-69.9, adult; Z90.49 Acquired absence of other specified parts of digestive tract ==

== ENCOUNTER → 2021-08-26 | Outpatient (CLI) | payer OTHER | END | disposition home or self-care (01) | LOC: WOUNDCARE 03:34 | PROVIDERS: ATTEND Nurse Practitioner Family | DX: L97.822 Non-pressure chronic ulcer of other part of left lower leg with fat layer exposed (principal); L97.812 Non-pressure chronic ulcer of other part of right lower leg with fat layer exposed; I87.8 Other specified disorders of veins; E66.01 Morbid (severe) obesity due to excess calories; E03.9 Hypothyroidism, unspecified; E78.49 Other hyperlipidemia; R73.09 Other abnormal glucose; I10 Essential (primary) hypertension; J45.909 Unspecified asthma, uncomplicated; Z68.44 Body mass index [BMI] 60.0-69.9, adult; Z90.49 Acquired absence of other specified parts of digestive tract ==

== ENCOUNTER → 2021-09-02 | Outpatient (CLI) | payer OTHER | LOC: WOUNDCARE 02:06 | PROVIDERS: ATTEND Nurse Practitioner Family | DX: L97.822 Non-pressure chronic ulcer of other part of left lower leg with fat layer exposed (principal); L97.812 Non-pressure chronic ulcer of other part of right lower leg with fat layer exposed; E66.01 Morbid (severe) obesity due to excess calories; E03.9 Hypothyroidism, unspecified; E78.49 Other hyperlipidemia; R73.09 Other abnormal glucose; I87.8 Other specified disorders of veins; I10 Essential (primary) hypertension; J45.909 Unspecified asthma, uncomplicated; Z68.44 Body mass index [BMI] 60.0-69.9, adult; Z90.49 Acquired absence of other specified parts of digestive tract ==

== ENCOUNTER → 2021-09-09 | Outpatient (CLI) | payer OTHER | LOC: WOUNDCARE 00:59 | PROVIDERS: ATTEND Nurse Practitioner Family | DX: L97.822 Non-pressure chronic ulcer of other part of left lower leg with fat layer exposed (principal); L97.812 Non-pressure chronic ulcer of other part of right lower leg with fat layer exposed; E66.01 Morbid (severe) obesity due to excess calories; E03.9 Hypothyroidism, unspecified; E78.49 Other hyperlipidemia; R73.09 Other abnormal glucose; I87.8 Other specified disorders of veins; I10 Essential (primary) hypertension; J45.909 Unspecified asthma, uncomplicated; Z68.44 Body mass index [BMI] 60.0-69.9, adult; Z90.49 Acquired absence of other specified parts of digestive tract ==

== ENCOUNTER 2021-09-13 14:03 | Emergency (ER) | payer OTHER ==
[~2021-09-13] VITALS: Ht 157.4 cm; Wt 154.2 kg
[2021-09-13 14:59] LABS: BASO % 0.2 % (0.0-1.0); EOS # 0.3 10*3/uL (0.0-0.4); EOS % 3.1 % (1.0-4.0); HEMATOCRIT 36.4 % (42.0-52.0); MEAN CELL VOLUME 78.4 fl (80.0-94.0); MEAN CORPUSCULAR HGB 22.8 pg (27.0-31.0); MEAN CORPUSCULAR HGB CONC 29.1 g/dl (33.0-37.0); MEAN PLATELET VOLUME 8.6 fl (9.6-12.3); MONO # 0.5 10*3/uL (0.1-1.0); MONO % 5.2 % (3.0-9.0); NEUT # 7.9 10*3/uL (2.3-7.9); NEUT % 81.2 % (47.0-73.0); PLATELET COUNT AUTOMATED 438 10*3/uL (130-400); RED BLOOD COUNT 4.64 10*6/uL (4.50-5.90); RED CELL DISTRI WIDTH 16.8 % (0-14.5); WHITE BLOOD COUNT 9.7 10*3/uL (4.8-10.8)
[2021-09-13 15:16] LABS: ALBUMIN 3.2 gm/dl (3.1-4.5); ALKALINE PHOSPHATASE 111 U/L (45-117); BUN 11 mg/dl (7-24); CHLORIDE 94 mmol/L (98-107); CREATININE 0.86 mg/dL (0.70-1.30); POTASSIUM 3.9 mmol/L (3.5-5.1); SGOT/AST 25 IU/L (3-35); SGPT/ALT 30 U/L (12-78); SODIUM 134 mmol/L (136-145)
[2021-09-13 18:47] VITALS: BP 144/84
[2021-09-13] MEDS ORDERED: ANTIFUNGAL113 GM T (18:48)
== END 2021-09-13 19:18 | disposition home or self-care (01) ==
LOC: ED 14:03
PROVIDERS: Emergency Medicine
DX: B37.2 Candidiasis of skin and nail (principal); N50.89 Other specified disorders of the male genital organs; J45.909 Unspecified asthma, uncomplicated; K21.9 Gastro-esophageal reflux disease without esophagitis; E78.5 Hyperlipidemia, unspecified; E03.9 Hypothyroidism, unspecified; E66.9 Obesity, unspecified; Z88.6 Allergy status to analgesic agent; Z79.899 Other long term (current) drug therapy; Z98.890 Other specified postprocedural states; Z90.49 Acquired absence of other specified parts of digestive tract

== ENCOUNTER → 2021-09-16 | Outpatient (CLI) | payer OTHER ==
[~2021-09-16] MED LIST changes: +ANTIFUNGAL113 GM T
== END | disposition home or self-care (01) ==
LOC: US 10:00
PROVIDERS: ATTEND Nurse Practitioner Primary Care
DX: N50.89 Other specified disorders of the male genital organs (principal); N43.3 Hydrocele, unspecified

== ENCOUNTER → 2021-09-23 | Outpatient (CLI) | payer OTHER | LOC: WOUNDCARE 00:41 | PROVIDERS: ATTEND Nurse Practitioner Family | DX: L97.822 Non-pressure chronic ulcer of other part of left lower leg with fat layer exposed (principal); I10 Essential (primary) hypertension; I87.2 Venous insufficiency (chronic) (peripheral); I89.0 Lymphedema, not elsewhere classified; E66.01 Morbid (severe) obesity due to excess calories; E03.9 Hypothyroidism, unspecified; E78.49 Other hyperlipidemia; R73.09 Other abnormal glucose; J45.909 Unspecified asthma, uncomplicated; N49.2 Inflammatory disorders of scrotum; Z68.44 Body mass index [BMI] 60.0-69.9, adult; Z90.49 Acquired absence of other specified parts of digestive tract ==

== ENCOUNTER → 2021-09-28 | Outpatient (CLI) | payer OTHER | LOC: WOUNDCARE 00:58 | PROVIDERS: ATTEND Nurse Practitioner Family | DX: L97.822 Non-pressure chronic ulcer of other part of left lower leg with fat layer exposed (principal); I10 Essential (primary) hypertension; I87.2 Venous insufficiency (chronic) (peripheral); I89.0 Lymphedema, not elsewhere classified; R32 Unspecified urinary incontinence; R73.09 Other abnormal glucose; E66.01 Morbid (severe) obesity due to excess calories; E03.9 Hypothyroidism, unspecified; E78.49 Other hyperlipidemia; J45.909 Unspecified asthma, uncomplicated; N49.2 Inflammatory disorders of scrotum; Z68.44 Body mass index [BMI] 60.0-69.9, adult; Z90.49 Acquired absence of other specified parts of digestive tract ==

== ENCOUNTER → 2021-10-05 | Outpatient (CLI) | payer OTHER | LOC: WOUNDCARE 13:49 | PROVIDERS: ATTEND Nurse Practitioner Family | DX: L97.828 Non-pressure chronic ulcer of other part of left lower leg with other specified severity (principal); I10 Essential (primary) hypertension; I87.2 Venous insufficiency (chronic) (peripheral); I89.0 Lymphedema, not elsewhere classified; R32 Unspecified urinary incontinence; R73.09 Other abnormal glucose; E66.01 Morbid (severe) obesity due to excess calories; E03.9 Hypothyroidism, unspecified; E78.49 Other hyperlipidemia; J45.909 Unspecified asthma, uncomplicated; N49.2 Inflammatory disorders of scrotum; Z68.44 Body mass index [BMI] 60.0-69.9, adult; Z90.49 Acquired absence of other specified parts of digestive tract ==

== ENCOUNTER → 2021-11-16 | Outpatient (CLI) | payer OTHER | END | disposition home or self-care (01) | LOC: WOUNDCARE 00:41 | PROVIDERS: ATTEND Nurse Practitioner Family | DX: L97.822 Non-pressure chronic ulcer of other part of left lower leg with fat layer exposed (principal); L97.812 Non-pressure chronic ulcer of other part of right lower leg with fat layer exposed; I89.0 Lymphedema, not elsewhere classified; E66.01 Morbid (severe) obesity due to excess calories; E03.9 Hypothyroidism, unspecified; I10 Essential (primary) hypertension; J45.909 Unspecified asthma, uncomplicated; Z90.49 Acquired absence of other specified parts of digestive tract; Z68.44 Body mass index [BMI] 60.0-69.9, adult ==

== ENCOUNTER → 2021-11-23 | Outpatient (CLI) | payer OTHER | END | disposition home or self-care (01) | LOC: WOUNDCARE 01:33 | PROVIDERS: ATTEND Nurse Practitioner Family | DX: L97.822 Non-pressure chronic ulcer of other part of left lower leg with fat layer exposed (principal); I89.0 Lymphedema, not elsewhere classified; E66.01 Morbid (severe) obesity due to excess calories; E03.9 Hypothyroidism, unspecified; I10 Essential (primary) hypertension; J45.909 Unspecified asthma, uncomplicated; Z90.49 Acquired absence of other specified parts of digestive tract; Z68.44 Body mass index [BMI] 60.0-69.9, adult ==

== ENCOUNTER → 2021-11-30 | Outpatient (CLI) | payer OTHER | END | disposition home or self-care (01) | LOC: WOUNDCARE 00:46 | PROVIDERS: ATTEND Nurse Practitioner Family | DX: L97.822 Non-pressure chronic ulcer of other part of left lower leg with fat layer exposed (principal); L97.811 Non-pressure chronic ulcer of other part of right lower leg limited to breakdown of skin; I89.0 Lymphedema, not elsewhere classified; E66.01 Morbid (severe) obesity due to excess calories; E03.9 Hypothyroidism, unspecified; I10 Essential (primary) hypertension; J45.909 Unspecified asthma, uncomplicated; Z90.49 Acquired absence of other specified parts of digestive tract; Z68.44 Body mass index [BMI] 60.0-69.9, adult ==

== ENCOUNTER → 2021-12-07 | Outpatient (CLI) | payer OTHER | END | disposition home or self-care (01) | LOC: WOUNDCARE 02:51 | PROVIDERS: ATTEND Nurse Practitioner Family | DX: L97.822 Non-pressure chronic ulcer of other part of left lower leg with fat layer exposed (principal); L97.812 Non-pressure chronic ulcer of other part of right lower leg with fat layer exposed; I89.0 Lymphedema, not elsewhere classified; E66.01 Morbid (severe) obesity due to excess calories; E03.9 Hypothyroidism, unspecified; I10 Essential (primary) hypertension; J45.909 Unspecified asthma, uncomplicated; Z68.44 Body mass index [BMI] 60.0-69.9, adult; Z90.49 Acquired absence of other specified parts of digestive tract ==

== ENCOUNTER → 2021-12-14 | Outpatient (CLI) | payer OTHER | END | disposition home or self-care (01) | LOC: WOUNDCARE 02:23 | PROVIDERS: ATTEND Nurse Practitioner Family | DX: L97.822 Non-pressure chronic ulcer of other part of left lower leg with fat layer exposed (principal); L97.812 Non-pressure chronic ulcer of other part of right lower leg with fat layer exposed; E66.01 Morbid (severe) obesity due to excess calories; I89.0 Lymphedema, not elsewhere classified; E03.9 Hypothyroidism, unspecified; I10 Essential (primary) hypertension; J45.909 Unspecified asthma, uncomplicated; Z90.49 Acquired absence of other specified parts of digestive tract; Z68.44 Body mass index [BMI] 60.0-69.9, adult ==

== ENCOUNTER → 2021-12-21 | Outpatient (CLI) | payer OTHER | LOC: WOUNDCARE 03:46 | PROVIDERS: ATTEND Nurse Practitioner Family | DX: L97.822 Non-pressure chronic ulcer of other part of left lower leg with fat layer exposed (principal); L97.812 Non-pressure chronic ulcer of other part of right lower leg with fat layer exposed; I89.0 Lymphedema, not elsewhere classified; E66.01 Morbid (severe) obesity due to excess calories; E03.9 Hypothyroidism, unspecified; I10 Essential (primary) hypertension; J45.909 Unspecified asthma, uncomplicated; Z90.49 Acquired absence of other specified parts of digestive tract; Z68.44 Body mass index [BMI] 60.0-69.9, adult ==

== ENCOUNTER → 2021-12-30 | Outpatient (CLI) | payer OTHER ==
[~2021-12-30] MED LIST changes: +ERTAPENEM1 GM IV; +FUROSEMIDE40 MG PO; +TAMSULOSIN HCL0.4 MG PO; +TRULICITY0.75 MG/0. SC
== END | disposition home or self-care (01) ==
LOC: WOUNDCARE 02:05
PROVIDERS: ATTEND Nurse Practitioner Family
DX: L97.822 Non-pressure chronic ulcer of other part of left lower leg with fat layer exposed (principal); L97.812 Non-pressure chronic ulcer of other part of right lower leg with fat layer exposed; I89.0 Lymphedema, not elsewhere classified; E66.01 Morbid (severe) obesity due to excess calories; Z68.44 Body mass index [BMI] 60.0-69.9, adult

== ENCOUNTER → 2022-01-06 | Outpatient (CLI) | payer OTHER | END | disposition home or self-care (01) | LOC: WOUNDCARE 01:50 | PROVIDERS: ATTEND Nurse Practitioner Family | DX: L97.812 Non-pressure chronic ulcer of other part of right lower leg with fat layer exposed (principal); L97.822 Non-pressure chronic ulcer of other part of left lower leg with fat layer exposed; I89.0 Lymphedema, not elsewhere classified; E66.01 Morbid (severe) obesity due to excess calories; E03.9 Hypothyroidism, unspecified; I10 Essential (primary) hypertension; J45.909 Unspecified asthma, uncomplicated; Z90.49 Acquired absence of other specified parts of digestive tract ==

== ENCOUNTER → 2022-01-13 | Outpatient (CLI) | payer OTHER | END | disposition home or self-care (01) | LOC: WOUNDCARE 02:22 | PROVIDERS: ATTEND Nurse Practitioner Family | DX: L97.822 Non-pressure chronic ulcer of other part of left lower leg with fat layer exposed (principal); I87.8 Other specified disorders of veins; I89.0 Lymphedema, not elsewhere classified; E66.01 Morbid (severe) obesity due to excess calories; Z68.44 Body mass index [BMI] 60.0-69.9, adult ==

== ENCOUNTER → 2022-01-27 | Outpatient (CLI) | payer OTHER | END | disposition home or self-care (01) | LOC: WOUNDCARE 00:55 | PROVIDERS: ATTEND Nurse Practitioner Family | DX: L97.822 Non-pressure chronic ulcer of other part of left lower leg with fat layer exposed (principal); I87.8 Other specified disorders of veins; I89.0 Lymphedema, not elsewhere classified; I10 Essential (primary) hypertension; E03.9 Hypothyroidism, unspecified; J45.909 Unspecified asthma, uncomplicated; E66.01 Morbid (severe) obesity due to excess calories; Z68.44 Body mass index [BMI] 60.0-69.9, adult ==

== ENCOUNTER → 2022-02-03 | Outpatient (CLI) | payer OTHER | END | disposition home or self-care (01) | LOC: WOUNDCARE 02:34 | PROVIDERS: ATTEND Nurse Practitioner Family | DX: L97.822 Non-pressure chronic ulcer of other part of left lower leg with fat layer exposed (principal); L97.811 Non-pressure chronic ulcer of other part of right lower leg limited to breakdown of skin; I89.0 Lymphedema, not elsewhere classified; E66.01 Morbid (severe) obesity due to excess calories; E03.9 Hypothyroidism, unspecified; I10 Essential (primary) hypertension; J45.909 Unspecified asthma, uncomplicated; Z90.49 Acquired absence of other specified parts of digestive tract ==

== ENCOUNTER → 2022-02-17 | Outpatient (CLI) | payer OTHER | END | disposition home or self-care (01) | LOC: WOUNDCARE 00:39 | PROVIDERS: ATTEND Nurse Practitioner Family | DX: L97.822 Non-pressure chronic ulcer of other part of left lower leg with fat layer exposed (principal); L97.811 Non-pressure chronic ulcer of other part of right lower leg limited to breakdown of skin; I89.0 Lymphedema, not elsewhere classified; E66.01 Morbid (severe) obesity due to excess calories; E03.9 Hypothyroidism, unspecified; I10 Essential (primary) hypertension; Z68.44 Body mass index [BMI] 60.0-69.9, adult; Z90.49 Acquired absence of other specified parts of digestive tract ==

== ENCOUNTER 2022-02-24 15:11 | Emergency (ER) | payer OTHER ==
[2022-02-24] VITALS (7 sets, daily range): BP systolic 106–126; BP diastolic 46–61
[2022-02-24 16:17] LABS: BASO % 0.1 % (0.0-1.0); EOS % 0.3 % (1.0-4.0); LYMPH # 0.6 10*3/uL (1.3-4.4); LYMPH % 5.9 % (27.0-41.0); MEAN CELL VOLUME 78.2 fl (80.0-94.0); MEAN CORPUSCULAR HGB 23.7 pg (27.0-31.0); MEAN CORPUSCULAR HGB CONC 30.3 g/dl (33.0-37.0); MEAN PLATELET VOLUME 8.6 fl (9.6-12.3); MONO % 9.6 % (3.0-9.0); NEUT # 8.8 10*3/uL (2.3-7.9); NEUT % 83.9 % (47.0-73.0); PLATELET COUNT AUTOMATED 373 10*3/uL (130-400); RED BLOOD COUNT 4.22 10*6/uL (4.50-5.90); RED CELL DISTRI WIDTH 16.4 % (0-14.5); WHITE BLOOD COUNT 10.5 10*3/uL (4.8-10.8)
[2022-02-24 16:34] LABS: ACT PARTIAL THROMBO TIME 31.6 SECONDS (20.0-32.1); INTERNATIONAL NORM RATIO 1.1 (2.0-3.5)
[2022-02-24 16:35] LABS: ALKALINE PHOSPHATASE 95 U/L (45-117); BUN 9 mg/dl (7-24); CHLORIDE 85 mmol/L (98-107); CREATININE 0.75 mg/dL (0.70-1.30); LIPASE 96 U/L (73-393); POTASSIUM 3.4 mmol/L (3.5-5.1); SGOT/AST 46 IU/L (3-35); SGPT/ALT 27 U/L (12-78); SODIUM 123 mmol/L (136-145); TOTAL PROTEIN 7.6 gm/dL (6.4-8.2)
== END 2022-02-24 22:39 | disposition short-term general hospital (02) ==
LOC: ED 15:11 → EDHOLD 18:09 → ED 22:39
PROVIDERS: Emergency Medicine
DX: I50.9 Heart failure, unspecified (principal); J96.01 Acute respiratory failure with hypoxia; R33.9 Retention of urine, unspecified; Z88.6 Allergy status to analgesic agent; Z88.5 Allergy status to narcotic agent; Z79.899 Other long term (current) drug therapy; Z90.49 Acquired absence of other specified parts of digestive tract; Z98.890 Other specified postprocedural states

== ENCOUNTER 2022-05-29 11:27 | Emergency (ER) | payer OTHER ==
[~2022-05-29] VITALS: Wt 158.8 kg
[2022-05-29 11:32] VITALS: BP 00/00
== END 2022-05-29 11:37 ==
LOC: ED 11:27
DX: I46.9 Cardiac arrest, cause unspecified (principal); Z90.49 Acquired absence of other specified parts of digestive tract; Z98.890 Other specified postprocedural states; K21.9 Gastro-esophageal reflux disease without esophagitis; I10 Essential (primary) hypertension; E03.9 Hypothyroidism, unspecified; E78.5 Hyperlipidemia, unspecified; Z79.899 Other long term (current) drug therapy; Z88.6 Allergy status to analgesic agent